=== PATIENT | female | born 1940 | race Caucasian/White ===

== ENCOUNTER 2019-06-15 09:31 | Observation (INO) | payer MEDICARE, OTHER, SELFPAY ==
[2019-06-15] VITALS (14 sets, daily range): BP systolic 146–199; BP diastolic 70–90; PULSE 61–79; RESP 12–18; TEMP 36.4–36.7; O2SAT 94–98; BMI 24.1; BMI 24.0
--- NOTE | 2019-06-15 09:44 | RAD_ITS ---
STUDY: X-RAY CHEST REASON FOR EXAM: Female, 79 years old. Hypertension. Stroke symptoms. TECHNIQUE: AP upright CXR COMPARISON: None. FINDINGS: No evidence of pneumonia, pulmonary edema, pneumothorax or pleural effusion. Cardiac silhouette, hilar and mediastinal contours with no acute findings. Atherosclerosis of the thoracic aorta. Degenerative osseous changes with no acute osseous abnormality. RAD/Chest 1 View IMPRESSION: No acute findings. Electronically Signed: Keith Barahona, at 10:40 EST Tel , Service support ,
--- NOTE | 2019-06-15 09:44 | EKG12_ITS ---
Test Reason : NEURO S
--- NOTE | 2019-06-15 09:44 | CT_ITS ---
STUDY: CT BRAIN WITHOUT CONTRAST REASON FOR EXAM: Female, 79 years old. Left arm pain and left facial droop. Hypertension and diabetes. TECHNIQUE: Transaxial CT imaging of the brain was performed without administration of intravenous contrast material. Individualized dose optimization techniques were used for this CT. COMPARISON: No relevant priors. FINDINGS: No evidence of intracranial hemorrhage, mass, acute infarct, or hydrocephalus. Chronic microangiopathic changes in the white matter. Atherosclerosis of the intracranial arteries. No acute osseous abnormality. Visualized paranasal sinuses and mastoid air cells patent. Visualized extracranial soft tissues unremarkable. ASPECTS 05/06 CT/Brain/Head without Contrast IMPRESSION: No acute intracranial findings. Electronically Signed: Keith Barahona, at 10:18 EST Tel , Service support ,
[2019-06-15 10:01] LABS: Bedside Glucose 153 mg/dL (70-110)
[2019-06-15 10:07] LABS: Absolute Lymphocyte Count 2.15 X10^3/uL (0.83-4.51); Basophil% 0.9 % (0-1); Eosinophil# 0.91 X10^3/uL; Eosinophils% 8.1 % (0-5); Hematocrit 44.1 % (37-47); Hemoglobin 14.5 g/dL (12.0-15.0); Lymphocyte # 2.15 X10^3/ul (4.0); Lymphocyte % 19.1 % (19-41); Mean Corp Hgb Conc 32.9 g/dL (32-36); Mean Corpuscular Hgb 29.9 pg (27.0-32.0); Mean Corpuscular Volume 90.9 fL (81-99); Monocyte% 8.9 % (0-10); NRBC Flagged by Analyzer 0 % (0-5); Neutrophil # 7.02 X10^3/uL (2.7-7.7); Neutrophil % 62.5 % (47-70); Platelet Count 248 K/mm3 (150-450); RBC Distribution Width CV 12.7 % (11.6-14.6); RBC Distribution Width SD 41.1 fl (35.1-43.9); Red Blood Count 4.85 M/mm3 (4.2-5.4); White Blood Count 11.2 K/mm3 (4.4-11.0)
[2019-06-15 10:12] LABS: Prothrombin Time (Protime)PT. 12.9 SECONDS (11.7-14.9)
[2019-06-15 10:13] LABS: Partial Thromboplast Time 28.5 Seconds (24.1-36.2)
[2019-06-15 10:27] LABS: Anion Gap 6 (5-15); BUN 28 mg/dL (7-18); BUN/Creat Ratio 19.7 RATIO (10-20); Calcium,Total 9.5 mg/dL (8.5-10.1); Chloride 102 mmol/L (98-107); Creatinine, Serum 1.42 mg/dL (0.55-1.02); EST Glomerular Filtration Rate 38 mL/min (>60); Est Glom Filt Rate - Afr Amer 46 mL/min (>60); Estimated Creatinine Clearance 28.43 ml/min; Glucose 141 mg/dL (74-106); Potassium 4.5 mmol/L (3.5-5.1); Sodium Level 139 mmol/L (136-145)
[2019-06-15] MEDS: 0.9% Normal Saline 1,000 ML 100 ML IV ×2 (10:31→13:29)
--- NOTE | 2019-06-15 10:37 | ED.RN ---
NIH DOCUMENTATION CANCELLED PER DR MAI SINCE PT HAS HAD NO S/S TODAY.
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
--- NOTE | 2019-06-15 10:58 | NURSING ---
PCU TIA KITTOE
--- NOTE | 2019-06-15 11:13 | ED.RN ---
PT HAS DECIDED NOT TO STAY
--- NOTE | 2019-06-15 11:49 | NURSING ---
PCU TIA KITTOE
--- NOTE | 2019-06-15 12:41 | CDU_ITS ---
Reason For Study: TIA Rt. Velocities/BP Lt. Velocities/BP Prox CCA 57.9/10.7 cm/sec. Prox CCA 73.9/10.7 cm/sec. Mid CCA 57.9/12.6 cm/sec. Mid CCA 54.1/10.7 cm/sec. Dist CCA 60.7/13.5 cm/sec. Dist CCA 58.8/12.6 cm/sec. Prox ICA 70.2/15.4 cm/sec. Prox ICA 68.4/17.9 cm/sec. Mid ICA 61.7/15.4 cm/sec. Mid ICA 58.6/16.8 cm/sec. Dist ICA 70.2/24.8 cm/sec. Dist ICA 64.0/16.8 cm/sec. Rt. ICA/CCA = 1.2. Lt. ICA/CCA = 1.3. Prox ECA 81.5/6.9 cm/sec. Prox ECA 90.4/5.8 cm/sec. Rt. Vert. 44.7/13.5 cm/sec. Lt. Vert. 37.7/11.3 cm/sec. Right Extracranial There is heterogeneous, irregular atherosclerotic plaque noted in the right common carotid artery. There is heterogeneous, irregular atherosclerotic plaque noted in the right internal carotid artery. There is heterogeneous, irregular atherosclerotic plaque noted in the right external carotid artery. Antegrade flow is noted in the right vertebral artery. Left Extracranial There is homogeneous, smooth atherosclerotic plaque noted in the left common carotid artery. There is heterogeneous, irregular atherosclerotic plaque noted in the left internal carotid artery. There is heterogeneous, irregular atherosclerotic plaque noted in the left external carotid artery. Antegrade flow is noted in the left vertebral artery. Procedure Carotid Duplex 31088. The exam was diagnostic. Exam performed portable in patient room. Interpretation Summary Irregular calcific plaque proximal right internal carotid and external carotid arteries <50% stenosis right internal carotid <50% stenosis right external carotid. Irregular calcific plaque proximal left internal carotid and external carotid arteries <50% stenosis left internal carotid <50% stenosis left external carotid Patent, antegrade, <50% stenosis bilateral vertebrals Ordering Physician: Chuck Martínez Performed By: Spike Jackson RVT
--- NOTE | 2019-06-15 12:41 | MRI_ITS ---
STUDY: MRI BRAIN WITHOUT CONTRAST REASON FOR EXAM: Female, 79 years old. TIA, left arm pain, facial paralysis and aphasia. TECHNIQUE: Standardized multiplanar fat and water weighted pulse sequences were obtained. COMPARISON: MRA brain and CT brain from today. MRI brain September 29, 2009. FINDINGS: There is moderate cerebral atrophy with widening of the extra-axial spaces and ventricular dilatation. There are multiple white matter hyperintensities, distributed throughout the deep white matter tracts of the cerebral hemispheres, consistent with moderate chronic white matter ischemic changes. There is no evidence for recent intracranial ischemia or other cause of cytotoxic edema on diffusion weighted imaging (DWI). Remote lacunar infarct left globus pallidus. Normal thalami. There is no extra-axial fluid accumulation. Normal flow voids within the major intracranial circulation suggesting patency by spin echo criteria. Normal sella turcica, pituitary gland, infundibular stalk, optic chiasm and hypothalamus. Normal tectal plate and pineal gland. Normal midbrain, michel and medulla. Normal cerebellum. Normal basal cisterns. Normal bilateral temporal bones. Normal bilateral internal auditory canals. No demonstrated orbital abnormality, within the constraints of a routine brain study. Normal visualized paranasal sinuses. Normal calvarium and skull base. Normal visualized soft tissue structures. Normal visualized upper cervical spine. MRI/Brain without Contrast IMPRESSION: Involutional changes of the brain, as described above. Electronically Signed: Ángel Ojeda MD at 20:35 EST , Service support ,
--- NOTE | 2019-06-15 12:41 | ECHOD_ITS ---
Reason For Study: TIA/CVA Procedure This was a 2D Doppler, Color Flow transthoracic echocardiogram. Exam performed portable in patient room. Left Ventricle Mild concentric left ventricular hypertrophy. The estimated ejection fraction is 65 %. Stage 2 diastolic dysfunction. No regional wall motion abnormalities noted. Right Ventricle Mildly dilated right ventricle. Normal systolic function. Atria The left atrium is severely enlarged. Normal right atrium. Normal atrial septum. Bubble contrast study negative for right to left interatrial shunt. Mitral Valve Mild diffuse mitral valve thickening. Moderate mitral annular calcification extending into the posterior leaflet. Trivial mitral valve insufficiency. Tricuspid Valve Normal tricuspid valve. Trivial tricuspid valve insufficiency. Right ventricular systolic pressure estimated to be 41 mmHg. Mild pulmonary hypertension. Aortic Valve Trisinus/trileaflet aortic valve. Moderate focal aortic valve thickening. Moderate focal aortic valve calcification. Moderate restriction of the aortic valve. Fused, immobile Left and rigtht coronary cusps. Mild to moderate aortic stenosis. Peak aortic valve gradient 33 mmHg. Mean aortic valve gradient 17 mmHg. Calculated aortic valve area (continuity equation) is 1.4 cm2. Pulmonic Valve Normal pulmonic valve. Great Vessels Normal aortic root. Moderate atherosclerosis of the aortic arch. Normal inferior vena cava. Inferior vena cava collapse with sniff. Pericardium/Pleural No pericardial effusion. Medication Performed a rapid injection of agitated mix of 9 cc saline and 1cc air to assess for atrial septal defect. MMode/2D Measurements & Calculations LVIDd: 3.7 cm IVSd: 1.4 cm LVOT diam: 2.1 cm LVIDs: 2.5 cm LVPWd: 1.4 cm RVDd: 3.7 cm FS: 34.5 % LVOT area: 3.5 cm2 Ao root diam: 3.6 cm LAV(MOD-bp): 74.3 ml LA A4 area: 26.0 cm2 LAV(MOD-bp) Indexed: 43.2 ml/m2 LAV(MOD-sp2): 60.6 ml LAV(MOD-sp4): 88.4 ml LA dimension(2D): 4.2 cm RA A4 area: 19.9 cm2 Doppler Measurements & Calculations MV E max hilario: 87.6 cm/sec Lat Peak E' Hilario: 6.9 cm/sec Med Peak E' Hilario: 5.2 cm/sec MV A max hilario: 56.3 cm/sec E/E' lat: 12.8 E/E' med: 16.9 MV E/A: 1.6 Ao V2 max: 279.4 cm/sec LV V1 max: 108.5 cm/sec SV(LVOT): 94.0 ml Ao max P.2 mmHg LV V1 max P.7 mmHg Ao V2 mean: 192.9 cm/sec LV V1 mean P.6 mmHg Ao mean P.7 mmHg LV V1 mean: 76.9 cm/sec Ao V2 VTI: 64.2 cm LV V1 VTI: 27.0 cm ANNA(I,D): 1.5 cm2 ANNA(V,D): 1.4 cm2 PA V2 max: 93.5 cm/sec TR max hilario: 291.9 cm/sec TR max P.2 mmHg Interpretation Summary Mild concentric left ventricular hypertrophy. The estimated ejection fraction is 65 %. Stage 2 diastolic dysfunction. Mildly dilated right ventricle. The left atrium is severely enlarged. Bubble contrast study negative for right to left interatrial shunt. Trivial mitral valve insufficiency. Trivial tricuspid valve insufficiency. Right ventricular systolic pressure estimated to be 41 mmHg. Mild pulmonary hypertension. Fused, immobile Left and rigtht coronary cusps. Mild to moderate aortic stenosis. Calculated aortic valve area (continuity equation) is 1.4 cm2. There is no comparison study available. Ordering Physician: Chuck Martínez Referring Physician: Chuck Martínez Performed By: Marychuy Heath RDCS
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
--- NOTE | 2019-06-15 14:23 | CON.PCM_ITS ---
Problem List (1) TIA (transient ischemic attack) Status: Acute Reason for Consult Date of Consultation: 06/15/19 Reason for Consultation: Speech disturbances, left arm weakness History of Present Illness: The patient is a 79 year old F with PMH HTN, HLD, DM, gout admitted with strokelike symptoms. Per patient she had acute onset of left arm pain, facial weakness, speech disturbances yesterday 06/15/2019. Per patient she was at [facility] and initially had acute onset left arm pain, followed by facial weakness, per he noticed a facial droop, initially patient could not speak and per her speech was slurred and garbled and he could not understand what she was trying to say, later they went home and at that time she had difficulty holding objects due to weakness in the left hand, per patient the whole incident lasted for about 15 to 20 minutes before her symptoms resolved. Per ED documentation NIHSS on admission was 0. Denies any neck pain, low back pain or radicular symptoms. Per patient she lives with her , denies any frequent falls, does not use cane or walker to ambulate, does drive and does not need any assistance for ADLs. Per patient she is on aspirin at baseline. CT head done on admission reported unremarkable. [] Past Medical History Past Medical History (Chronic Problems): Chronic Problems Essential (primary) hypertension (Chronic) DM2 (diabetes mellitus, type 2) (Chronic) Allergies No Known Allergies Allergy (Verified 06/15/19 09:33) Home Medications: Ambulatory Orders Medication Instructions Recorded Allopurinol [Zyloprim] 300 mg PO DAILY 06/15/19 Aspirin [Adult Low Dose Aspirin EC] 81 mg PO DAILY 06/15/19 Atenolol [Tenormin (Beta Kvng)] 100 mg PO DAILY 06/15/19 Dulaglutide [Trulicity] 1.5 mg SQ [place] 06/15/19 Enalapril Maleate 20 mg PO DAILY 06/15/19 Hydrochlorothiazide [Hctz] 25 mg PO DAILY 06/15/19 Insulin Glargine,Hum.rec.anlog 50 unit SQ BID 06/15/19 [Lantus] Pravastatin [Pravachol] 20 mg PO QHS 06/15/19 Lives: Spouse/ Significant Other Smoking Status: Never smoker Tobacco Use: Non-smoker Alcohol: None Drugs: None - *Family History Maternal History Items: Heart Disease Review of Systems Constitutional: Reports: - - Complete ROS negative except as documented in HPI Patient Problems: Active and Suspected Problems Facial paresthesia (Acute) TIA (transient ischemic attack) (Acute) - Physical Exam Vitals/I&O's: Vital Signs Temp Pulse Resp BP Pulse Ox 98.1 F 79 16 171/80 H 95 06/15/19 09:33 06/15/19 11:46 06/15/19 11:46 06/15/19 11:46 06/15/19 11:46 Oxygen Delivery Method Room Air Weight: 65.4 kg Body Mass Index (BMI) 24.0 Finger Stick Blood Glucose 153 General: Alert HEENT: Normocephalic Neck: Supple Lungs: Normal air movement Cardiovascular: Normal S1, Normal S2 Abdomen: Bowel Sounds Present Extremities: No cyanosis Neurological: - - Conscious, alert, AOA x3, CN II to XII grossly intact, power 5/5 both upper and lower extremities, plantars B/L flexor, no pronator drift, no sensory loss, no cerebellar signs, gait deferred, reflexes + B/L B/S/T/K/A, No NR, fundus not visualized, NIHSS 0 at present, mRS 0 at baseline Psych/Mental Status: Normal Affect Laboratory Results 06/15/19 09:49: POC Glucose 153 H 06/15/19 09:54: WBC 11.2 H, RBC 4.85, Hgb 14.5, Hct 44.1, MCV 90.9, MCH 29.9, MCHC 32.9, RDW Std Deviation 41.1, RDW Coeff of Meagan 12.7, Plt Count 248, MPV 10.0, Immature Gran % (Auto) 0.500, Neut % (Auto) 62.5, Lymph % (Auto) 19.1, [place] % (Auto) 8.9, Eos % (Auto) 8.1 H, Baso % (Auto) 0.9, Absolute Neuts (auto) 7.0, Absolute Lymphs (auto) 2.15, Nucleated RBC % 0 06/15/19 09:54: PT 12.9, INR 1.0, APTT 28.5 06/15/19 09:54: Sodium 139, Potassium 4.5, Chloride 102, Carbon Dioxide 31.0, Anion Gap 6, BUN 28 H, Creatinine 1.42 H, Estim Creat Clear Calc 28.43, Est GFR (MDRD) Af Amer 46 L, Est GFR (MDRD) Non-Af 38 L, BUN/Creatinine Ratio 19.7, Glucose 141 H, Calcium 9.5, Troponin I < 0.015 06/15/19 12:50: Troponin I < 0.015 Current Medications Acetaminophen (Tylenol) 650 mg PO Q6H PRN PRN PRN Reason: Pain Score 1-3/Temp > 100.7 F Albuterol Sulfate (Ventolin Aerosols) 2.5 mg INHALATION Q2H PRN PRN PRN Reason: SOB/Wheezing Allopurinol (Zyloprim) 300 mg PO DAILY@0800 [facility] Aspirin (Aspirin, Baby) 81 mg PO DAILY@0800 [facility] Atenolol (Tenormin (Beta Kvng)) 100 mg PO DAILY [facility] Dextrose (D50w Syringe) 0 gm IV X1 PRN; Protocol PRN Reason: Hypoglycemia Enoxaparin Sodium (Lovenox) 30 mg SC DAILY@1000 [facility] Glucagon () 1 mg IM .X1 PRN PRN Reason: Hypoglycemia Guaifenesin (Robitussin) 20 ml PO Q4H PRN PRN PRN Reason: COUGH Hydrochlorothiazide (Hctz) 25 mg PO DAILY [facility] Sodium Chloride () 1,000 mls @ 100 mls/hr IV .Q10H ONE Stop: 06/15/19 19:43 Last Admin: 06/15/19 10:31 Dose: 100 mls/hr Documented by: Sodium Chloride () 1,000 mls @ 100 mls/hr IV .Q10H JAVAD Stop: 06/17/19 04:40 Last Admin: 06/15/19 13:29 Dose: 100 mls/hr Documented by: Sodium Chloride () 250 mls @ 15 mls/hr IV .[id number] PRN PRN Reason: Saline Flush Insulin Glargine (Lantus (Bkc)) 50 units SC BID [facility] Insulin Human Lispro (Humalog Kwikpen (Bkc)) 0 unit SC ACHS [facility]; Protocol Lisinopril (Zestril) 20 mg PO DAILY [facility] Melatonin (Melatonin) 3 mg PO QHS PRN PRN PRN Reason: INSOMNIA Nitroglycerin (Nitrostat) 0.4 mg SUBLINGUAL Q5M PRN PRN Reason: CARDIAC/CHEST PAIN Non-Formulary Medication (Dulaglutide) 1.5 mg SQ [place] JAVAD Ondansetron HCl (Zofran) 4 mg IV Q8H PRN PRN PRN Reason: NAUSEA/VOMITING Oxycodone HCl (Oxyir) 5 mg PO Q4H PRN PRN PRN Reason: Pain Score 4-5/10 Oxycodone HCl (Oxyir) 10 mg PO Q4H PRN PRN PRN Reason: Pain Score 6-10/10 Pravastatin Sodium (Pravachol) 20 mg PO QHS [facility]AV[facility] Senna/Docusate Sodium (Senokot-S, Rosaura-Colace) 2 tablet PO BID PRN PRN PRN Reason: Constipation Sodium Chloride () 10 - 40 ml IV UD PRN PRN Reason: SALINE FLUSH Assessment/Plan All Active Problems Facial paresthesia (Acute) TIA (transient ischemic attack) (Acute) The patient is a 79 year old F with PMH HTN, HLD, DM, gout admitted with strokelike symptoms. Per patient she had acute onset of left arm pain, facial weakness, speech disturbances yesterday 06/15/2019. Per patient she was at [facility] and initially had acute onset left arm pain, followed by facial weakness, per he noticed a facial droop, initially patient could not speak and per her speech was slurred and garbled and he could not understand what she was trying to say, later they went home and at that time she had difficulty holding objects due to weakness in the left hand, per patient the whole incident lasted for about 15 to 20 minutes before her symptoms resolved. Per ED documentation NIHSS on admission was 0. Denies any neck pain, low back pain or radicular symptoms. Per patient she lives with her , denies any frequent falls, does not use cane or walker to ambulate, does drive and does not need any assistance for ADLs. Per patient she is on aspirin at baseline. CT head done on admission reported unremarkable. Impression Probable TIA Plan -Aspirin 81 mg p.o. once daily and Plavix 75 mg p.o. once daily. Dual antiplatelet for 3weeks then switch to single antiplatelet with aspirin. Bleeding risk discussed in detail with the patient. ABCD2 score atleast 5 -On Pravachol -MRI brain, MRA head/neck -HbA1c pending, LDL pending -TTE-pending -30-day event recorder on discharge -Stroke risk factors discussed and stroke education provided -Permissive HTN for 24 hrs -snf goal BP < 130/80 mmHg, goal LDL < 70 and goal Hba1c < 7% -PT/OT/ST -GI/DVT prophylaxis -Fall precautions -Further medical management per hospitalist team -Please call with questions if any -Follow-up with neurology in 4 weeks -Thank you for allowing us to participate in patient's care and management This note has been generated using [employer] dictation software. It may contain incorrect words, spellings and punctuation that were not noted in the review of the note prior to signing Code Visit Inpatient E&M: 18176 Init Hosp L3
--- NOTE | 2019-06-15 14:28 | MRI_ITS ---
STUDY: MRA OF THE HEAD WITHOUT CONTRAST REASON FOR EXAM: Female, 79 years old. TIA with left arm pain and facial paralysis. Aphasia. TECHNIQUE: 3-D [id number] (TOF) imaging was performed with MIPs. The study was performed unenhanced. COMPARISON: CT brain June 15, 2019 and MRI brain September 29, 2009 FINDINGS: Normal bilateral petrous carotid arteries. Normal right cavernous carotid artery with a normal supraclinoid bifurcation. Normal left cavernous carotid artery with a normal supraclinoid bifurcation. Normal right A1 segments of the anterior cerebral artery. Normal left A1 segments of the anterior cerebral artery. Normal intact anterior communicating artery (ACOM). Normal bilateral A2 segments of the anterior cerebral arteries. Normal right M1 and M2 segments of the middle cerebral arteries, with a normal M1 bifurcation. Normal left M1 and M2 segments of the middle cerebral arteries, with a normal M1 bifurcation. There is non-visualization of the right posterior communicating artery (PCOM). There is non-visualization of the left posterior communicating artery (PCOM). Moderate narrowing distal left vertebral artery near the bifurcation. Oormal basilar artery with a normal basilar bifurcation. The visualized bilateral superior cerebellar (SCA) arteries are normal. Normal bilateral P1, P2 and visualized P3 segments of the posterior cerebral arteries. Moderate stenosis p2-3 junction on the left. There is no demonstrated aneurysm of the [place]. There is no demonstrated abnormality of the visualized brain. MRI/MRA Head ONLY without Contrast IMPRESSION: Moderate stenosis distal left vertebral artery and left posterior cerebral artery as above. Electronically Signed: Ángel Ojeda MD at 16:32 EST , Service support ,
--- NOTE | 2019-06-15 14:28 | MRI_ITS ---
STUDY: MRA NECK WITHOUT CONTRAST REASON FOR EXAM: Female, 79 years old. TIA, left arm pain, facial paralysis and aphasia TECHNIQUE: Source images were obtained, MIPs were performed. The study was performed unenhanced. Proximal and distal field of view/vessels not well visualized technically. COMPARISON: None. FINDINGS: RIGHT CAROTID ARTERIES: Normal right common carotid artery (CCA). Normal right common carotid bulb. Normal origin of the right internal carotid (ICA) artery without a hemodynamically significant stenosis. Normal visualized cervical portion of the right internal carotid artery. Normal origin of the right external carotid artery (ECA). LEFT CAROTID ARTERIES: Normal left common carotid artery (CCA). Normal left common carotid bulb. Normal origin of the left internal carotid (ICA) artery without a hemodynamically significant stenosis. Normal visualized cervical portion of the left internal carotid artery. Normal origin of the left external carotid artery (ECA). VERTEBRAL ARTERIES: Normal antegrade flow within the bilateral vertebral artery without a hemodynamically significant stenosis. MRI/MRA Neck without Contrast IMPRESSION: Normal bilateral cervical carotid and vertebral arteries. Electronically Signed: Ángel Ojeda MD at 20:51 EST , Service support ,
[2019-06-15 15:06] LABS: Cholesterol 159 mg/dL (200); High Density Lipoprotein 46 mg/dL; Triglycerides 62 mg/dL; Very Low Density Lipoprotein 12 mg/dL (5-40)
[2019-06-15 15:11] LABS: Hemoglobin A1c 8.6 % (4.2-6.3)
[2019-06-15] MEDS: Clopidogrel Bisulfate 75 MG Tablet PO (16:25)
[2019-06-15 16:36] LABS: Bedside Glucose 109 mg/dL (70-110)
[2019-06-15 23:11] LABS: Bedside Glucose 193 mg/dL (70-110)
[2019-06-16] VITALS (7 sets, daily range): BP systolic 149–173; BP diastolic 84–95; PULSE 57–79; RESP 18; TEMP 36.4–36.7; O2SAT 94–96; BMI 24.0
[2019-06-16] MEDS: 0.9% Normal Saline 1,000 ML 100 ML IV (00:33)
[2019-06-16 06:09] LABS: Absolute Lymphocyte Count 2.07 X10^3/uL (0.83-4.51); Absolute Neutrophil Count 5.1 X10^3/uL (2.0-7.7); Basophil# 0.05 X10^3/uL; Basophil% 0.6 % (0-1); Eosinophil# 0.63 X10^3/uL; Eosinophils% 7.3 % (0-5); Hematocrit 37.7 % (37-47); Hemoglobin 12.5 g/dL (12.0-15.0); Lymphocyte # 2.07 X10^3/ul (4.0); Lymphocyte % 23.9 % (19-41); Mean Corp Hgb Conc 33.2 g/dL (32-36); Mean Corpuscular Volume 90.6 fL (81-99); Mean Platelet Vol. 10.1 fl (6.2-12.0); Monocyte# 0.75 X10^3/uL; Monocyte% 8.7 % (0-10); NRBC Flagged by Analyzer 0 % (0-5); Neutrophil # 5.14 X10^3/uL (2.7-7.7); Neutrophil % 59.2 % (47-70); Platelet Count 194 K/mm3 (150-450); RBC Distribution Width CV 12.4 % (11.6-14.6); RBC Distribution Width SD 40.5 fl (35.1-43.9); Red Blood Count 4.16 M/mm3 (4.2-5.4); White Blood Count 8.7 K/mm3 (4.4-11.0)
[2019-06-16 06:24] LABS: Anion Gap 6 (5-15); BUN 28 mg/dL (7-18); BUN/Creat Ratio 20.1 RATIO (10-20); Calcium,Total 8.7 mg/dL (8.5-10.1); Chloride 107 mmol/L (98-107); Cholesterol 137 mg/dL (200); Creatinine, Serum 1.39 mg/dL (0.55-1.02); EST Glomerular Filtration Rate 39 mL/min (>60); Est Glom Filt Rate - Afr Amer 47 mL/min (>60); Estimated Creatinine Clearance 29.05 ml/min; Glucose 196 mg/dL (74-106); High Density Lipoprotein 36 mg/dL; Potassium 4.4 mmol/L (3.5-5.1); Sodium Level 142 mmol/L (136-145); Triglycerides 73 mg/dL; Very Low Density Lipoprotein 15 mg/dL (5-40)
[2019-06-16 06:55] LABS: Bedside Glucose 198 mg/dL (70-110)
[2019-06-16] MEDS: Aspirin 81 MG TAB.CHEW PO (08:30)
[2019-06-16] MEDS: Allopurinol 300 MG Tablet PO (08:30)
[2019-06-16] MEDS: Clopidogrel Bisulfate 75 MG Tablet PO (09:02)
[2019-06-16] MEDS: hydroCHLOROthiazide 25 MG Tablet PO (09:03)
[2019-06-16] MEDS: Atenolol 100 MG Tablet PO (09:03)
[2019-06-16] MEDS: Lisinopril 20 MG Tablet PO (09:03)
--- NOTE | 2019-06-16 09:40 | DCINST_ITS ---
- Discharge Diagnoses Current Active Problems: Current Active and Chronic Problems Facial paresthesia (Acute) Essential (primary) hypertension (Chronic) DM2 (diabetes mellitus, type 2) (Chronic) TIA (transient ischemic attack) (Acute) You will use the following diet at home:: Calorie/Carbohydrate Controlled (specify 1200, 1400, etc) - 1800 Your food should be the consistency of: Regular Discharge Activity: May Not Drive Allergies/Adverse Reactions: Allergies No Known Allergies Allergy (Verified 06/15/19 09:33) Medications to take at Discharge Allopurinol [Zyloprim] 300 mg PO DAILY 06/15/19 Aspirin [Adult Low Dose Aspirin EC] 81 mg PO DAILY 06/15/19 Atenolol [Tenormin (beta nba)] 100 mg PO DAILY 06/15/19 Dulaglutide [Trulicity] 1.5 mg SQ [place] 06/15/19 Enalapril Maleate 20 mg PO DAILY 06/15/19 Hydrochlorothiazide [Hctz] 25 mg PO DAILY 06/15/19 Insulin Glargine,Hum.rec.anlog [Lantus] 50 unit SQ BID 06/15/19 Pravastatin [Pravachol] 20 mg PO DAILY 06/15/19 Clopidogrel Bisulfate [Plavix] 75 mg PO DAILY #20 tab 06/16/19 The following prescriptions were given: Clopidogrel Bisulfate [Plavix] 75 mg PO DAILY #20 tab Transmission Status: Received by [facility] Primary Care Physician: Ervin Beck DO [Primary Care Provider] - Please follow up with your Primary Care Physician in: in 5-7 days for 1 30 day event recorder as recommended by neurology Test Results: Test results from this visit will be discussed in further detail at your follow- up appointment, if applicable. Proposed Discharge Date: 06/16/19
--- NOTE | 2019-06-16 09:41 | DS.PCM_ITS ---
Discharge Date and Diagnosis - Problem List Patient Problems: Active and Suspected Problems Facial paresthesia (Acute) TIA (transient ischemic attack) (Acute) Date of Admission: 06/15/19 Date of Discharge: 06/16/19 - Primary Discharge Diagnosis Active and Suspected Problems Facial paresthesia (Acute) TIA (transient ischemic attack) (Acute) - Secondary Discharge Diagnosis Chronic Problems Essential (primary) hypertension (Chronic) DM2 (diabetes mellitus, type 2) (Chronic) Hospital Course and Treatment Imaging Results: Clinical Impression(s) from Imaging Studies Brain CT 06/15/19 09:44 IMPRESSION: No acute intracranial findings. Electronically Signed: Keith Barahona, at 10:18 EST Tel , Service support , Chest X-Ray 06/15/19 09:44 IMPRESSION: No acute findings. Electronically Signed: Keith Barahona, at 10:40 EST Tel , Service support , Brain MRI 06/15/19 12:41 IMPRESSION: Involutional changes of the brain, as described above. Electronically Signed: Ángel Ojeda MD at 20:35 EST , Service support , Head MRA 06/15/19 14:28 IMPRESSION: Moderate stenosis distal left vertebral artery and left posterior cerebral artery as above. Electronically Signed: Ángel Ojeda MD at 16:32 EST , Service support , Neck MRA 06/15/19 14:28 IMPRESSION: Normal bilateral cervical carotid and vertebral arteries. Electronically Signed: Ángel Ojeda MD at 20:51 EST , Service support , Summary of Care Provided: Patient is an 79-year-old lady who presented with facial numbness as well as upper extremity weakness 1. Suspected TIA ~admitted to monitored bed. Placed on every 4 neurochecks. As part of her evaluation ordered bilateral carotid duplex, MRI of the head, 2D echo. Patient was started on aspirin. Already on statin therapy did continue. Consult was also placed to neurology. Patient was seen in consultation by Dr. Aranda his note and recommendations reviewed. MRI failed to demonstrate acute CVA patient was however discharged home on dual antiplatelet therapy with aspirin and Plavix for 3 weeks then continue with aspirin only. Dr. Aranda also recommended for patient to undergo a 30-day event monitor patient instructed to follow-up with PCP to have this set up. 2. Diabetes mellitus type II ~Controlled patient's oral hypoglycemics held. Placed on long acting insulin, Accu-Cheks a.c. and at bedtime and covered with sliding scale insulin 3. Hypertension ~ blood pressure controlled, home medications continued with dose adjustment as needed 4. Dyslipidemia ~patient is on statin therapy, continued at home dose 5. Gout Symptoms controlled on allopurinol 6. Acute renal insufficiency Baseline creatinine unknown patient is currently being rehydrated with subsequent monitoring of electrolyte 7. DVT prophylaxis ~ on enoxaparin Patient Problems: Active and Suspected Problems Facial paresthesia (Acute) TIA (transient ischemic attack) (Acute) Objective: GENERAL: cooperative HEENT: Atraumatic; EYES; Anicteric, Normal Conjunctiva NECK; supple, normal thyroid, RESPIRATORY: Diminished to auscultation CARDIOVASCULAR: Regular S1 S2, GI: soft, normoactive bowel sounds, : No Renal angle tenderness; SKIN: No Rash PSYCH; Flat affect - Physical Exam Vitals/I&O's: Vital Signs Temp Pulse Resp BP Pulse Ox 98.0 F 71 18 173/95 H 94 06/16/19 09:00 06/16/19 09:00 06/16/19 09:00 06/16/19 09:00 06/16/19 09:00 Oxygen Delivery Method Room Air Weight: 65.4 kg Body Mass Index (BMI) 24.0 Finger Stick Blood Glucose 153 Intake and Output for Last 24 Hours 06/14/19 06/15/19 06/16/19 23:59 23:59 23:59 Intake Total 1891.67 / 1891.67 1333.33 / 1333.33 Balance 1891.67 / 1891.67 1333.33 / 1333.33 Laboratory Results 06/15/19 09:49: POC Glucose 153 H 06/15/19 09:54: WBC 11.2 H, RBC 4.85, Hgb 14.5, Hct 44.1, MCV 90.9, MCH 29.9, MCHC 32.9, RDW Std Deviation 41.1, RDW Coeff of Meagan 12.7, Plt Count 248, MPV 10.0, Immature Gran % (Auto) 0.500, Neut % (Auto) 62.5, Lymph % (Auto) 19.1, [place] % (Auto) 8.9, Eos % (Auto) 8.1 H, Baso % (Auto) 0.9, Absolute Neuts (auto) 7.0, Absolute Lymphs (auto) 2.15, Nucleated RBC % 0 06/15/19 09:54: PT 12.9, INR 1.0, APTT 28.5 06/15/19 09:54: Sodium 139, Potassium 4.5, Chloride 102, Carbon Dioxide 31.0, Anion Gap 6, BUN 28 H, Creatinine 1.42 H, Estim Creat Clear Calc 28.43, Est GFR (MDRD) Af Amer 46 L, Est GFR (MDRD) Non-Af 38 L, BUN/Creatinine Ratio 19.7, Glucose 141 H, Calcium 9.5, Troponin I < 0.015 06/15/19 09:54: Hemoglobin A1c 8.6 H 06/15/19 12:50: Troponin I < 0.015 06/15/19 12:50: Triglycerides 62, Cholesterol 159, LDL Cholesterol 101, VLDL Cholesterol 12, HDL Cholesterol 46 06/15/19 16:24: POC Glucose 109 06/15/19 21:06: POC Glucose 193 H 06/16/19 05:35: WBC 8.7, RBC 4.16 L, Hgb 12.5, Hct 37.7, MCV 90.6, MCH 30.0, MCHC 33.2, RDW Std Deviation 40.5, RDW Coeff of [place] 12.4, Plt Count 194, MPV 10.1, Immature Gran % (Auto) 0.300, Neut % (Auto) 59.2, Lymph % (Auto) 23.9, [place] % (Auto) 8.7, Eos % (Auto) 7.3 H, Baso % (Auto) 0.6, Absolute Neuts (auto) 5.1, Absolute Lymphs (auto) 2.07, Nucleated RBC % 0 06/16/19 05:35: Sodium 142, Potassium 4.4, Chloride 107, Carbon Dioxide 29.0, Anion Gap 6, BUN 28 H, Creatinine 1.39 H, Estim Creat Clear Calc 29.05, Est GFR (MDRD) Af Amer 47 L, Est GFR (MDRD) Non-Af 39 L, BUN/Creatinine Ratio 20.1 H, Glucose 196 H, Calcium 8.7, Triglycerides 73, Cholesterol 137, LDL Cholesterol 86, VLDL Cholesterol 15, HDL Cholesterol 36 L 06/16/19 06:51: POC Glucose 198 H Current Medications Acetaminophen (Tylenol) 650 mg PO Q6H PRN PRN PRN Reason: Pain Score 1-3/Temp > 100.7 F Albuterol Sulfate (Ventolin Aerosols) 2.5 mg INHALATION Q2H PRN PRN PRN Reason: SOB/Wheezing Allopurinol (Zyloprim) 300 mg PO DAILY@0800 [facility] Last Admin: 06/16/19 08:30 Dose: 300 mg Documented by: Aspirin (Aspirin, Baby) 81 mg PO DAILY@0800 [facility] Last Admin: 06/16/19 08:30 Dose: 81 mg Documented by: Atenolol (Tenormin (Beta Kvng)) 100 mg PO DAILY [facility] Last Admin: 06/16/19 09:03 Dose: 100 mg Documented by: Clopidogrel Bisulfate (Plavix) 75 mg PO DAILY [facility] Stop: 07/06/19 10:00 Last Admin: 06/16/19 09:02 Dose: 75 mg Documented by: Dextrose (D50w Syringe) 0 gm IV X1 PRN; Protocol PRN Reason: Hypoglycemia Enoxaparin Sodium (Lovenox) 30 mg SC DAILY@1000 [facility] Last Admin: 06/16/19 09:03 Dose: Not Given Documented by: Glucagon () 1 mg IM .X1 PRN PRN Reason: Hypoglycemia Guaifenesin (Robitussin) 20 ml PO Q4H PRN PRN PRN Reason: COUGH Hydrochlorothiazide (Hctz) 25 mg PO DAILY [facility] Last Admin: 06/16/19 09:03 Dose: 25 mg Documented by: Sodium Chloride () 250 mls @ 15 mls/hr IV .[id number] PRN PRN Reason: Saline Flush Insulin Glargine (Lantus (Bkc)) 50 units SC BID [facility] Last Admin: 06/16/19 09:03 Dose: 50 units Documented by: Insulin Human Lispro (Humalog Kwikpen (Bkc)) 0 unit SC ACHS [facility]; Protocol Last Admin: 06/16/19 06:54 Dose: Not Given Documented by: Lisinopril (Zestril) 20 mg PO DAILY [facility] Last Admin: 06/16/19 09:03 Dose: 20 mg Documented by: Melatonin (Melatonin) 3 mg PO QHS PRN PRN PRN Reason: INSOMNIA Nitroglycerin (Nitrostat) 0.4 mg SUBLINGUAL Q5M PRN PRN Reason: CARDIAC/CHEST PAIN Ondansetron HCl (Zofran) 4 mg IV Q8H PRN PRN PRN Reason: NAUSEA/VOMITING Oxycodone HCl (Oxyir) 5 mg PO Q4H PRN PRN PRN Reason: Pain Score 4-5/10 Oxycodone HCl (Oxyir) 10 mg PO Q4H PRN PRN PRN Reason: Pain Score 6-10/10 Pravastatin Sodium (Pravachol) 20 mg PO QHS [facility] Last Admin: 06/15/19 21:10 Dose: Not Given Documented by: Senna/Docusate Sodium (Senokot-S, Rosaura-Colace) 2 tablet PO BID PRN PRN PRN Reason: Constipation Sodium Chloride () 10 - 40 ml IV UD PRN PRN Reason: SALINE FLUSH Discharge Diet: Low fat/ Low Cholesterol Discharge Activity: May Not Drive Home Medications: Medications to take at Discharge Allopurinol [Zyloprim] 300 mg PO DAILY 06/15/19 Aspirin [Adult Low Dose Aspirin EC] 81 mg PO DAILY 06/15/19 Atenolol [Tenormin (beta kvng)] 100 mg PO DAILY 06/15/19 Dulaglutide [Trulicity] 1.5 mg SQ [place] 06/15/19 Enalapril Maleate 20 mg PO DAILY 06/15/19 Hydrochlorothiazide [Hctz] 25 mg PO DAILY 06/15/19 Insulin Glargine,Hum.rec.anlog [Lantus] 50 unit SQ BID 06/15/19 Pravastatin [Pravachol] 20 mg PO DAILY 06/15/19 Clopidogrel Bisulfate [Plavix] 75 mg PO DAILY #20 tab 06/16/19 Following Prescrptions Were Given to Patient: Clopidogrel Bisulfate [Plavix] 75 mg PO DAILY #20 tab Transmission Status: Received by [facility] Primary Care Physician: Ervin Beck DO [Primary Care Provider] - Please follow up with your Primary Care Physician in: in 5-7 days for 1 30 day event recorder as recommended by neurology Disposition: Home Minutes spent on discharge:: 35 Patient Condition:: Stable Medical Necessity - Tobacco Use Smoking Status: Never smoker Tobacco Use: Non-smoker Meaningful Use Info Meaningful Use Diagnoses (Choose all that apply): None applicable Code Visit OBSV E&M: 65703 Observation care discharge
--- NOTE | 2019-06-16 10:43 | CASEMGMT ---
This RN CM to room with REYES form at this time, explanation done-pt voices understanding, and pt signed REYES form at this time. Original to chart and copy to pt at this time. Pt voices no further questions/concern/needs at this time. Pt awaiting ECHO results prior to discharge. [place] CL[facility] MAR[facility]
[2019-06-16 11:06] LABS: Bedside Glucose 282 mg/dL (70-110)
--- NOTE | 2019-06-16 11:57 | PN.NEURO_ITS ---
Patient Problems: Active and Suspected Problems Facial paresthesia (Acute) TIA (transient ischemic attack) (Acute) Subjective: No issues overnight. Care discussed with the nursing staff. 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 Patient denies any further strokelike symptoms. - Physical Exam Vitals/I&O's: Vital Signs Temp Pulse Resp BP Pulse Ox 98.0 F 71 18 173/95 H 94 06/16/19 09:00 06/16/19 09:00 06/16/19 09:00 06/16/19 09:00 06/16/19 09:00 Oxygen Delivery Method Room Air Weight: 65.4 kg Body Mass Index (BMI) 24.0 Finger Stick Blood Glucose 153 Intake and Output for Last 24 Hours 06/14/19 06/15/19 06/16/19 23:59 23:59 23:59 Intake Total 1891.67 / 1891.67 1333.33 / 1333.33 Balance 1891.67 / 1891.67 1333.33 / 1333.33 General: Alert HEENT: Normocephalic Neck: Supple Lungs: Normal air movement Cardiovascular: Normal S1, Normal S2 Abdomen: Bowel Sounds Present Extremities: No cyanosis Neurological: - - Conscious, alert, AOA x3, CN II to XII grossly intact, power 5/5 both upper and lower extremities, plantars B/L flexor, no pronator drift, no sensory loss, no cerebellar signs, gait deferred, reflexes + B/L B/S/T/K/A, No NR, fundus not visualized, NIHSS 0 at present, mRS 0 at baseline Psych/Mental Status: Normal Affect Laboratory Results 06/15/19 09:54: Hemoglobin A1c 8.6 H 06/15/19 12:50: Troponin I < 0.015 06/15/19 12:50: Triglycerides 62, Cholesterol 159, LDL Cholesterol 101, VLDL Cholesterol 12, HDL Cholesterol 46 06/15/19 16:24: POC Glucose 109 06/15/19 21:06: POC Glucose 193 H 06/16/19 05:35: WBC 8.7, RBC 4.16 L, Hgb 12.5, Hct 37.7, MCV 90.6, MCH 30.0, MCHC 33.2, RDW Std Deviation 40.5, RDW Coeff of Meagan 12.4, Plt Count 194, MPV 10.1, Immature Gran % (Auto) 0.300, Neut % (Auto) 59.2, Lymph % (Auto) 23.9, Huron % (Auto) 8.7, Eos % (Auto) 7.3 H, Baso % (Auto) 0.6, Absolute Neuts (auto) 5.1, Absolute Lymphs (auto) 2.07, Nucleated RBC % 0 06/16/19 05:35: Sodium 142, Potassium 4.4, Chloride 107, Carbon Dioxide 29.0, Anion Gap 6, BUN 28 H, Creatinine 1.39 H, Estim Creat Clear Calc 29.05, Est GFR (MDRD) Af Amer 47 L, Est GFR (MDRD) Non-Af 39 L, BUN/Creatinine Ratio 20.1 H, Glucose 196 H, Calcium 8.7, Triglycerides 73, Cholesterol 137, LDL Cholesterol 86, VLDL Cholesterol 15, HDL Cholesterol 36 L 06/16/19 06:51: POC Glucose 198 H 06/16/19 11:02: POC Glucose 282 H Current Medications Acetaminophen (Tylenol) 650 mg PO Q6H PRN PRN PRN Reason: Pain Score 1-3/Temp > 100.7 F Albuterol Sulfate (Ventolin Aerosols) 2.5 mg INHALATION Q2H PRN PRN PRN Reason: SOB/Wheezing Allopurinol (Zyloprim) 300 mg PO DAILY@0800 [facility] Last Admin: 06/16/19 08:30 Dose: 300 mg Documented by: Aspirin (Aspirin, Baby) 81 mg PO DAILY@0800 [facility] Last Admin: 06/16/19 08:30 Dose: 81 mg Documented by: Atenolol (Tenormin (Beta Kvng)) 100 mg PO DAILY [facility] Last Admin: 06/16/19 09:03 Dose: 100 mg Documented by: Clopidogrel Bisulfate (Plavix) 75 mg PO DAILY [facility] Stop: 07/06/19 10:00 Last Admin: 06/16/19 09:02 Dose: 75 mg Documented by: Dextrose (D50w Syringe) 0 gm IV X1 PRN; Protocol PRN Reason: Hypoglycemia Enoxaparin Sodium (Lovenox) 30 mg SC DAILY@1000 [facility] Last Admin: 06/16/19 09:03 Dose: Not Given Documented by: Glucagon () 1 mg IM .X1 PRN PRN Reason: Hypoglycemia Guaifenesin (Robitussin) 20 ml PO Q4H PRN PRN PRN Reason: COUGH Hydrochlorothiazide (Hctz) 25 mg PO DAILY [facility] Last Admin: 06/16/19 09:03 Dose: 25 mg Documented by: Sodium Chloride () 250 mls @ 15 mls/hr IV .[id number] PRN PRN Reason: Saline Flush Insulin Glargine (Lantus (Bkc)) 50 units SC BID [facility] Last Admin: 06/16/19 09:03 Dose: 50 units Documented by: Insulin Human Lispro (Humalog Kwikpen (Bk)) 0 unit SC [facility]; Protocol Last Admin: 06/16/19 06:54 Dose: Not Given Documented by: Lisinopril (Zestril) 20 mg PO DAILY [facility] Last Admin: 06/16/19 09:03 Dose: 20 mg Documented by: Melatonin (Melatonin) 3 mg PO QHS PRN PRN PRN Reason: INSOMNIA Nitroglycerin (Nitrostat) 0.4 mg SUBLINGUAL Q5M PRN PRN Reason: CARDIAC/CHEST PAIN Ondansetron HCl (Zofran) 4 mg IV Q8H PRN PRN PRN Reason: NAUSEA/VOMITING Oxycodone HCl (Oxyir) 5 mg PO Q4H PRN PRN PRN Reason: Pain Score 4-5/10 Oxycodone HCl (Oxyir) 10 mg PO Q4H PRN PRN PRN Reason: Pain Score 6-10/10 Pravastatin Sodium (Pravachol) 20 mg PO QHS [facility] Last Admin: 06/15/19 21:10 Dose: Not Given Documented by: Senna/Docusate Sodium (Senokot-S, Rosaura-Colace) 2 tablet PO BID PRN PRN PRN Reason: Constipation Sodium Chloride () 10 - 40 ml IV UD PRN PRN Reason: SALINE FLUSH STROKE Vital Signs/Narrative: Vital Signs Temp Pulse Resp BP Pulse Ox 06/16/19 09:00 98.0 F 71 18 173/95 H 94 Medical Necessity - Tobacco Use Smoking Status: Never smoker Tobacco Use: Non-smoker Assessment/Plan All Active Problems Facial paresthesia (Acute) TIA (transient ischemic attack) (Acute) The patient is a 79 year old F with PMH HTN, HLD, DM, gout admitted with strokelike symptoms. Per patient she had acute onset of left arm pain, facial weakness, speech disturbances yesterday 06/15/2019. Per patient she was at [facility] and initially had acute onset left arm pain, followed by facial weakness, per he noticed a facial droop, initially patient could not speak and per her speech was slurred and garbled and he could not understand what she was trying to say, later they went home and at that time she had difficulty holding objects due to weakness in the left hand, per patient the whole incident lasted for about 15 to 20 minutes before her symptoms resolved. Per ED documentation NIHSS on admission was 0. Denies any neck pain, low back pain or radicular symptoms. Per patient she lives with her , denies any frequent falls, does not use cane or walker to ambulate, does drive and does not need any assistance for ADLs. Per patient she is on aspirin at baseline. CT head done on admission reported unremarkable. Impression Probable TIA Plan -Aspirin 81 mg p.o. once daily and Plavix 75 mg p.o. once daily. Dual antiplatelet for 3 weeks then switch to single antiplatelet with aspirin. Bleeding risk discussed in detail with the patient. ABCD2 score atleast 5 -On Pravachol -MRI brain images reviewed, MRA head/neck which is reviewed -HbA1c pending, LDL 86 -TTE-pending -30-day event recorder on discharge -Stroke risk factors discussed and stroke education provided -terminal carman goal BP < 130/80 mmHg, goal LDL < 70 and goal Hba1c < 7% -PT/OT/ST -GI/DVT prophylaxis -Fall precautions -Further medical management per hospitalist team -Please call with questions if any -Follow-up with neurology in 4 weeks -Thank you for allowing us to participate in patient's care and management This note has been generated using [employer] dictation software. It may contain incorrect words, spellings and punctuation that were not noted in the review of the note prior to signing
[2019-06-16 12:41] LABS: Hemoglobin A1c 8.5 % (4.2-6.3)
--- NOTE | 2019-06-16 12:53 | CHAPLAIN ---
Type of Pastoral Visit _x__ Initial Visit ___ Follow-up Visit ___ On-call Visit ___ General Patient Visit ___ Spiritual Assessment ___ Family Conference ___ Bereavement ___ Rapid Response ___ Code Blue ___ Other (describe below) Pastoral Care Referral From _x__ Patient ___ Family ___ Nurse ___ Physician ___ [employer] Sprayer ___ Legal Instructor ___ Other (describe below) Sacrament/Intervention _x__ Active listening ___ Anointing ___ Temple ___ Bereavement ___ Communion _x__ Karyn exploration ___ _x__ Life review _x__ Prayer ___ Reconciliation ___ Sacrament of Sick _x__ Supportive presence ___ Wedding ___ Other (describe below) Pastoral Comments patient had questions of spiritual concern and about re-connecting to her local confucianism
--- NOTE | 2019-06-16 15:06 | CASEMGMT ---
SW completed PHQ 9 with patient as she had a TIA. She scored a 2 which indicates minimal depression. She attributed these symptoms to her daughter moving out after living with her for a year. Valencia CANTU MSW
--- NOTE | 2019-06-16 15:24 | CASEMGMT ---
SW took patient information on [facility] [place]. This service helps blind individuals stay at home, learn how to adapt, mail books on tape to patient's, and do a home assessment to help make it easier on patient to get around. Valencia CANTU MSW
== END 2019-06-16 16:15 | disposition home or self-care (01) ==
LOC: ED 10:00 → PCU 12:19
PROVIDERS: Psychiatry & Neurology Neurology; Admitting Provider Internal Medicine; Emergency Provider Emergency Medicine; Family Provider Student in an Organized Health Care Education/Training Program; PCP Student in an Organized Health Care Education/Training Program; Referring Provider Internal Medicine; Visit Provider Internal Medicine
DX: G45.9 Transient cerebral ischemic attack, unspecified (principal); R20.2 Paresthesia of skin; I10 Essential (primary) hypertension; E11.9 Type 2 diabetes mellitus without complications; Z79.899 Other long term (current) drug therapy; Z79.82 Long term (current) use of aspirin; E78.5 Hyperlipidemia, unspecified; M10.9 Gout, unspecified; N28.9 Disorder of kidney and ureter, unspecified; R47.81 Slurred speech
CPT/HCPCS: 36415; 70450; 70544; 70547; 70551; 71045; 80048; 80061; 82962; 83036; 84484; 85025; 85610; 85730; 93005; 93306; 93880; 94762; 96360; 96361; 99218; 99251; 99285; J7030; A4216; G0378; G0463

== ENCOUNTER 2020-07-25 08:51 | Emergency (ER) | payer MEDICARE, OTHER, SELFPAY ==
[2019-06-16 09:57] VITALS: BMI 24.0
--- NOTE | 2020-07-25 08:52 | NURSING ---
STROKE ALERT CALLED [id number]
[2020-07-25 08:53] VITALS: BP 156/88; BP 169/106; PULSE 83; PULSE 86; RESP 18; RESP 20; RESP 22; O2SAT 97; O2SAT 98
--- NOTE | 2020-07-25 08:53 | RAD_ITS ---
STUDY: X-RAY CHEST REASON FOR EXAM: Female, 80 years old. STROKE LIKE SYMPTOMS TECHNIQUE: Single AP portable view of the chest. COMPARISON: 06/15/2019 FINDINGS: Poor inspiration with some bibasilar atelectasis. There is no demonstrated pleural abnormality. Normal size heart. Normal mediastinum and desmond. Normal visualized pulmonary arteries. Normal visualized aortic arch and descending thoracic aorta. Normal visualized thoracic spine. Normal visualized ribs, clavicles, and shoulders. There is no demonstrated abnormality of the visualized soft tissue structures of the upper abdomen. RAD/Chest 1 View IMPRESSION: Poor inspiration with some bibasilar atelectasis. Electronically Signed: Boyd Viera MD at 10:02 EST Tel , Service support ,
--- NOTE | 2020-07-25 08:53 | CT_ITS ---
STUDY: CT HEAD STROKE PROTOCOL W/O CONTRAST INJECTION REASON FOR EXAM: Female, 80 years old. CONFUSION/ NEURO DEFICIT RADIATION DOSAGE (If Supplied By Facility): CTDIvol = ( 44.99 ) mGy, DLP = ( 1496.61 ) mGycm TECHNIQUE: Transaxial CT imaging of the brain was performed without administration of intravenous contrast material. Individualized dose optimization techniques were used for this CT. COMPARISON: 06/15/2019 FINDINGS: Normal soft tissue structures. Normal calvarium. There is mild cerebral atrophy with widening of the extra-axial spaces and ventricular dilatation. There are areas of decreased attenuation within the white matter tracts of the supratentorial brain, consistent with microvascular disease changes. Normal basal ganglia and thalami. Normal brainstem. Normal cerebellum. There is no intracranial hemorrhage. There are no findings of an acute ischemic infarction. Normal visualized paranasal sinuses. ASPECT score: CT/STROKE Brain/Head without Cont IMPRESSION: Chronic involutional changes of the brain. N.B. : The above information has been verbally conveyed by Boyd Viera MD to Fawad Murray DO on 07/25/2020 09:10:43 (ET). Electronically Signed: Boyd Viera MD at 9:11 EST Tel , Service support ,
--- NOTE | 2020-07-25 08:53 | EKG12_ITS ---
Test Reason : STROKE Blood Pressure : / mmHG Vent. Rate : 075 BPM Atrial Rate : 075 BPM P-R Int : 218 ms QRS Dur : 090 ms QT Int : 426 ms P-R-T Axes : 064 004 023 degrees QTc Int : 475 ms Sinus rhythm with marked sinus arrhythmia with 1st degree A-V block Nonconducted PAC Otherwise normal ECG Confirmed by PREETI OLEA, XUAN ([id number]), editor at large ERNESTO STEPHENSON ([id number]) on 07/31/2020 9:18:30 AM Referred By: ANYA Confirmed By:ROHINI ÁLVAREZ MD
[2020-07-25 08:54] VITALS: BP 169/106; PULSE 84; RESP 18; O2SAT 98
[2020-07-25 08:57] VITALS: BP 189/109; PULSE 80; RESP 24; TEMP 36.6; O2SAT 98; BMI 25.1
[2020-07-25 09:00] LABS: Absolute Lymphocyte Count 2.82 X10^3/uL (0.83-4.51); Absolute Neutrophil Count 6.8 X10^3/uL (2.0-7.7); Basophil# 0.12 X10^3/uL; Eosinophil# 0.76 X10^3/uL; Eosinophils% 6.5 % (0-5); Hemoglobin 14.7 g/dL (12.0-15.0); Lymphocyte # 2.82 X10^3/ul (4.0); Lymphocyte % 24.2 % (19-41); Mean Corp Hgb Conc 32.7 g/dL (32-36); Mean Corpuscular Hgb 29.3 pg (27.0-32.0); Mean Corpuscular Volume 89.8 fL (81-99); Mean Platelet Vol. 10.4 fl (6.2-12.0); Monocyte% 9.5 % (0-10); NRBC Flagged by Analyzer 0 % (0-5); Neutrophil # 6.75 X10^3/uL (2.7-7.7); Neutrophil % 58.1 % (47-70); Platelet Count 300 K/mm3 (150-450); RBC Distribution Width CV 12.9 % (11.6-14.6); RBC Distribution Width SD 41.9 fl (35.1-43.9); Red Blood Count 5.01 M/mm3 (4.2-5.4); White Blood Count 11.6 K/mm3 (4.4-11.0)
--- NOTE | 2020-07-25 09:04 | NURSING ---
FACESHEET FAXED TO [facility]
[2020-07-25 09:12] LABS: Prothrombin Time (Protime)PT. 12.5 SECONDS (11.7-14.9)
[2020-07-25 09:13] LABS: Partial Thromboplast Time 23.7 Seconds (24.1-36.2)
[2020-07-25 09:16] VITALS: BMI 25.1
[2020-07-25 09:18] LABS: Anion Gap 2 (5-15); BUN 27 mg/dL (7-18); BUN/Creat Ratio 15.1 RATIO (10-20); Calcium,Total 9.5 mg/dL (8.5-10.1); Chloride 100 mmol/L (98-107); Creatinine, Serum 1.79 mg/dL (0.55-1.02); EST Glomerular Filtration Rate 29 mL/min (>60); Est Glom Filt Rate - Afr Amer 35 mL/min (>60); Estimated Creatinine Clearance 21.28 ml/min; Glucose 144 mg/dL (74-106); Potassium 3.9 mmol/L (3.5-5.1); Sodium Level 136 mmol/L (136-145)
[2020-07-25 09:23] VITALS: BP 159/118; PULSE 68; RESP 18; O2SAT 96
--- NOTE | 2020-07-25 09:39 | NURSING ---
CALLED [facility]. ETA IS 30 MIN
--- NOTE | 2020-07-25 09:43 | ED.DCSUM_ITS ---
History of Present Illness Chief Complaint: Neuro S/Sx Informant: Family Narrative: 80-year-old female presenting with altered mental status. On initial arrival patient was agitated and nonverbal. She had expressed to EMS that she had some chest pain. She was last known well at 7:30 AM per EMS. EMS did state that daughter will be coming to answer questions. - Past Medical History (1) TIA (transient ischemic attack) Status: Chronic (2) DM2 (diabetes mellitus, type 2) Status: Chronic (3) Essential (primary) hypertension Status: Chronic Past Medical History - Allergies and Home Meds Allergies/Adverse Reactions: Allergies No Known Allergies Allergy (Verified 06/15/19 09:33) Primary Care Physician: Ervin Beck DO [Primary Care Provider] - Prior records reviewed: Yes Past Medical History: None - Reviewed in problem list Lives: Alone Smoking Status: Never smoker Alcohol: None Drugs: None - Family History Maternal Family History: Reports: Heart Disease Review of Systems ROS: Unable to Obtain STROKE Vital Signs/Narrative: Vital Signs Temp Pulse Resp BP Pulse Ox 07/25/20 09:23 68 18 159/118 H 96 07/25/20 08:57 97.9 F 80 24 H 189/109 H 98 07/25/20 08:54 84 18 169/106 H 98 07/25/20 08:53 83 18 169/106 H 97 Inital Vital Signs reviewed: Yes General: Well nourished. Negative for: Unkempt Head: Normocephalic, Atraumatic Eyes: Perrl, EOMI ENT: Moist mucous membranes, No rhinorrhea Cardiovascular: Regular rate, Regular rhythm Respiratory: No distress, CTA bilaterally Abdomen: Soft, Nontender Extremities: Nontender, No edema Skin: Normal color, No rash. Negative for: Cyanosis, Diaphoresis Neurological: Alert, Cranial nerves II-XII grossly intact Psychological: Agitated, - - Confused Diagnostic/Tx/Re-eval - Rhythm Strip Rhythm Strip: Sinus Rhythm Rate: 75 - EKG Initial EKG Interpretation: Sinus Rhythm, No Acute Injury Pattern - Medical Decision Making Stroke Team Activated: Yes Reviewed Inclusion/Exclusion criteria: Yes Was Patient considered for Endovascular Intervention?: No IV Alteplase (t-PA) Administered: No No contraindications for IV Alteplase (t-PA) administration.: Yes Alteplase (t-PA) risks, benefits, alternative discussed: No Not given: Patient refusal: No Patient presents with confusion and agitation. Initially I was unable to get a good neurologic exam due to her confusion and inability to follow commands. She went to CT and I was able to get a CT brain however she was too agitated to continue for a CTA. She was brought back to the emergency room. At this point her daughter had arrived. Patient seems to be redirectable with her daughter here. She was able to answer her age but not her birthday or what month it is now. She has no obvious focal neurologic deficits. Patient is legally blind per her daughter. She states she feels her way around the house and she cannot see. Her NIH is 5. The telehealth neurologist also believes this. She did not want to do TPA however she was concerned as the daughter was expressing rapid memory loss and deterioration. Patient's daughter states that she was showing signs of bad memory about a year ago but over the last couple of months it has been getting worse. The neurologist wished to have the patient transferred to [facility] so she could be evaluated for rapidly generating neurologic problem. Daughter did agree to this. Patient was given aspirin in the ED. Lab work shows worsening renal function. She was given IV fluids. EKG is interpreted by myself shows sinus rhythm with a first-degree AV block however there is no ischemic change. CT brain is negative for acute process per the radiologist and my review. Patient will be transferred to [facility] in stable condition. Impression: 1. Acute delirium 2. TIA ED Disposition - Plan for ED Patient: Disposition: [facility] Referrals: Ervin Beck DO [Primary Care Provider] -
[2020-07-25 10:22] VITALS: BP 166/87; PULSE 67; RESP 18; O2SAT 96
--- NOTE | 2020-07-25 10:22 | CM.ED ---
Social Work Stroke alert. This social worker masters met with patient daughter in room. Introduced self as well as social worker masters role. Support provided to daughter. Jose QUIGLEY, MAXI
== END 2020-07-25 10:46 | disposition short-term general hospital (02) ==
PROVIDERS: Emergency Provider Student in an Organized Health Care Education/Training Program; PCP Student in an Organized Health Care Education/Training Program
DX: R41.0 Disorientation, unspecified (principal); G45.9 Transient cerebral ischemic attack, unspecified
CPT/HCPCS: 70450; 71045; 80048; 84484; 85025; 85610; 85730; 93005; 99285; A4216

== ENCOUNTER 2020-12-05 22:12 | Inpatient (IN) | payer MEDICARE, OTHER, SELFPAY ==
[2020-12-05 21:47] VITALS: BP 221/127; PULSE 115; RESP 15; TEMP 36.6; O2SAT 99; BMI 22.4
[2020-12-05 21:50] VITALS: PULSE 116
[2020-12-05 22:02] VITALS: BP 220/130; PULSE 106; RESP 17; O2SAT 100
--- NOTE | 2020-12-05 22:12 | ECHOD_ITS ---
Reason For Study: Murmur Procedure This was a 2D Doppler, Color Flow transthoracic echocardiogram. Exam performed portable in ICU/CCU. Left Ventricle Normal LV size. Moderate concentric left ventricular hypertrophy. Left ventricular systolic function is normal. Mild segmental systolic dysfunction (see wall motion). Segmental dysfunction with preserved ejection fraction (see wall motion). Stage 3 diastolic dysfunction. Infero-Basal: Hypokinetic. Basal inferoseptal: Hypokinetic. Posterior-Basal: Hypokinetic. Right Ventricle Normal RV size. Normal systolic function. Atria The left atrium is moderately enlarged. Normal right atrium. Mitral Valve There is mild mitral annular calcification. Tricuspid Valve Normal tricuspid valve. Mild (1+) tricuspid valve insufficiency. Pulmonary artery systolic pressure is 34 mmHg. Aortic Valve Trisinus/trileaflet aortic valve. Moderate focal aortic valve calcification. Peak aortic valve gradient 35 mmHg. Mean aortic valve gradient 19 mmHg. Moderate aortic stenosis. Great Vessels Normal aortic root. The pulmonary artery is normal size. Inferior vena cava collapse with sniff. Pericardium/Pleural No pericardial effusion. MMode/2D Measurements & Calculations LVIDd: 4.2 cm IVSd: 1.5 cm LVOT diam: 2.0 cm LVIDs: 3.1 cm LVPWd: 1.4 cm LVOT area: 3.0 cm2 RVDd: 3.1 cm FS: 25.6 % LA dimension: 4.4 cm LAV(MOD-bp): 86.7 ml LA A4 area: 26.4 cm2 LAV(MOD-bp) Indexed: 50.9 ml/m2 LAV(MOD-sp2): 71.8 ml LAV(MOD-sp4): 92.1 ml RA A4 area: 15.1 cm2 Time Measurements MV dec time: 0.16 sec Doppler Measurements & Calculations MV E max hilario: 101.5 cm/sec Lat Peak E' Hilario: 7.7 cm/sec Med Peak E' Hilario: 7.7 cm/sec MV A max hilario: 30.6 cm/sec E/E' lat: 13.2 E/E' med: 13.1 MV E/A: 3.3 MV V2 max: 99.7 cm/sec MV P1/2t max hilario: 53.7 cm/sec Ao V2 max: 294.4 cm/sec MV max P.0 mmHg MV P1/2t: 79.1 msec Ao max P.8 mmHg MV V2 mean: 51.4 cm/sec MV dec slope: 199.0 cm/sec2 Ao V2 mean: 203.4 cm/sec MV mean P.3 mmHg MVA(P1/2t): 2.8 cm2 Ao mean P.2 mmHg MV V2 VTI: 16.6 cm Ao V2 VTI: 66.0 cm MVA(VTI): 2.2 cm2 ANNA(I,D): 0.56 cm2 ANNA(V,D): 0.68 cm2 LV V1 max: 65.7 cm/sec SV(LVOT): 36.7 ml PA V2 max: 108.8 cm/sec LV V1 max P.7 mmHg LV V1 mean P.87 mmHg LV V1 mean: 43.2 cm/sec LV V1 VTI: 12.1 cm TR max hilario: 274.4 cm/sec TR max P.1 mmHg ECHO/Echo Complete Interpretation Summary Normal LV size. Left ventricular systolic function is normal. Mild segmental systolic dysfunction (see wall motion). Segmental dysfunction with preserved ejection fraction (see wall motion). Stage 3 diastolic dysfunction. Moderate concentric left ventricular hypertrophy. Moderate aortic stenosis. The left atrium is moderately enlarged. Ordering Physician: Gunnar Carrasquillo Referring Physician: Ervin Beck Performed By: Agustin Wright RCS
[2020-12-05 22:17] VITALS: BP 225/111; PULSE 113; RESP 18; O2SAT 99
--- NOTE | 2020-12-05 22:19 | PCM.HP.STD ---
HPI - General General Date of Admission: 12/05/20 HPI Narrative HEMANT TOM, is a 80 F with a significant history of hypertension and diabetes who was sent to outside hospital ([facility]) ED because of lightheadedness while at the restaurant. Stroke was initial consideration at outside hospital ED. While patient reported light headedness reports received from outside Hospital was that patient was confused but her confusion improved at the ED. NIH at outside Hospital was scored as a 1 (vision changes). CT brain was negative. Blood glucose was 664. Patient was diagnosed with HHS and was started on insulin drip. EKG showed sinus tach with PVCs. Chest x-ray was unremarkable. pH was 7.38. PCO2 was 49. Ketone was negative. Sodium was 130. Bicarbonate was 29. LFTs were negative. COVID-19 was negative. Troponin was negative. Blood pressure was 183/100 [facility] Medical History DM2 (diabetes mellitus, type 2) Essential (primary) hypertension Facial paresthesia TIA (transient ischemic attack) Home Medications allopurinol 300 mg PO DAILY 06/15/19 [History Last Taken 06/15/19] aspirin 81 mg PO DAILY 06/15/19 [History Last Taken 06/15/19] atenolol 100 mg PO DAILY 06/15/19 [History Last Taken 06/15/19] dulaglutide 1.5 mg SQ [place] 06/15/19 [History Last Taken 06/13/19] enalapril maleate 20 mg PO DAILY 06/15/19 [History Last Taken 06/15/19] hydrochlorothiazide 25 mg PO DAILY 06/15/19 [History Last Taken 06/15/19] insulin glargine 50 unit SQ BID 06/15/19 [History Last Taken 06/15/19] pravastatin 20 mg PO DAILY 06/15/19 [History Last Taken 06/14/19] clopidogrel 75 mg PO DAILY #20 tab 06/16/19 [Rx Last Taken Unknown] Allergy/AdvReac Type Severity Reaction Status Date / Time No Known Allergies Allergy Verified 06/15/19 09:33 Family History Other Hypertension Surgical History History of appendectomy History of cholecystectomy Social History Smoking Status: Never smoker ROS ROS Narrative Twelve point review of system is negative except as stated in HPI Vital Signs Vital Signs Vital Signs: 12/05/20 21:50 Pulse Rate 116 H Physical Exam Narrative Alert and oriented x3 Nontraumatic; normocephalic Lung clear to auscultate Heart sounds S1-S2. Murmur 5 out of 6. No gallop or rubs. Abdomen bowel sounds present soft, nontender nondistended Extremity without edema cyanosis or clubbing. Lab / Micro Data Result Diagrams: 12/05/20 22:45 12/05/20 22:45 Assessment & Plan Assessment/Plan (1) Hypertensive emergency: (2) Hyperosmolar hyperglycemic state (HHS): (3) Essential (primary) hypertension: (4) DM2 (diabetes mellitus, type 2): QUALIFIERS: Diabetes mellitus complication detail: without coma Diabetes mellitus complication status: with hyperosmolarity Diabetes mellitus residential insulin use: with terminal superintendent use Qualified Code(s): E11.00 - Type 2 diabetes mellitus with hyperosmolarity without nonketotic hyperglycemic-hyperosmolar coma ([facility]); Z79.4 - nursing home (current) use of insulin (5) Hypomagnesemia: PLAN: Hypertensive emergency Systolic blood pressure is in the 220s. Will decrease blood pressure in the first 24 hours with a goal of keeping blood pressure between 165 to 180. Labetalol as needed ordered. Resume Home blood pressure medication as soon as verified. Blood pressures. With a significant murmur echocardiogram ordered Admit to intensive care unit. Consult parent trainer. HHS Received normal saline bolus and was started on normal saline maintenance infusion at outside hospital ED. Insulin drip started at outside hospital. Blood glucose now is in the 300s. Accu-Chek every 4 hours with correction scale insulin ordered. Keep n.p.o. for now. Check A1c. Check serum osmolarity. BMP stat. Trend CBC and BMP Hypomagnesemia Replaced DVT Prophylaxis: Subcutaneous heparin ordered. Visit Charges Inpatient E&M: 11410 Init Hosp L3
[2020-12-05] MEDS: Labetalol (Prefilled) 20 MG/4 ML 10 MG IV (22:30)
[2020-12-05] MEDS: 0.9% Normal Saline 1,000 ML 75 ML IV (22:30)
[2020-12-05 22:32] VITALS: BP 230/123; PULSE 114; RESP 19; O2SAT 94
[2020-12-05 22:51] LABS: Bedside Glucose 382 mg/dL (70-110)
[2020-12-05] MEDS: Insulin Lispro 100 UNIT/ML INSULN.PEN SC (23:06)
[2020-12-05 23:08] LABS: Anion Gap 5 (5-15); BUN 25 mg/dL (7-18); BUN/Creat Ratio 13.1 RATIO (10-20); Calcium,Total 8.9 mg/dL (8.5-10.1); Chloride 102 mmol/L (98-107); Creatinine, Serum 1.91 mg/dL (0.55-1.02); EST Glomerular Filtration Rate 27 mL/min (>60); Est Glom Filt Rate - Afr Amer 32 mL/min (>60); Estimated Creatinine Clearance 21.63 ml/min; Glucose 350 mg/dL (74-106); Magnesium 1.7 mg/dL (1.6-2.6); Potassium 4.8 mmol/L (3.5-5.1); Sodium Level 135 mmol/L (136-145)
[2020-12-05 23:12] LABS: Hemoglobin A1c 10.5 % (3.8-5.6)
[2020-12-05 23:14] LABS: Phosphorus 2.9 mg/dL (2.5-4.9)
[2020-12-05] MEDS: Heparin Injection (Vial) 5,000 UNIT/ML VIAL 5000 UNIT SC (23:28)
[2020-12-05 23:47] VITALS: BP 175/98; PULSE 102; RESP 15; O2SAT 98
[2020-12-06] VITALS (24 sets, daily range): BP systolic 116–194; BP diastolic 48–109; PULSE 65–111; RESP 12–20; TEMP 36.4–37.1; O2SAT 94–100
[2020-12-06 00:18] LABS: Osmolality, Serum 310 mOsm/KG (280-301)
[2020-12-06] MEDS: Insulin Lispro 100 UNIT/ML INSULN.PEN SC ×5 (01:59→23:25)
[2020-12-06 02:15] LABS: Bedside Glucose 280 mg/dL (70-110)
[2020-12-06 04:11] LABS: Bedside Glucose 260 mg/dL (70-110)
[2020-12-06 04:16] LABS: Absolute Lymphocyte Count 1.74 X10^3/uL (0.83-4.51); Absolute Neutrophil Count 5.3 X10^3/uL (2.0-7.7); Basophil# 0.07 X10^3/uL; Basophil% 0.8 % (0-1); Eosinophil# 0.51 X10^3/uL; Hematocrit 38.2 % (37-47); Lymphocyte # 1.74 X10^3/ul (0.83-4.51); Lymphocyte % 20.6 % (19-41); Mean Corpuscular Hgb 29.5 pg (27.0-32.0); Mean Corpuscular Volume 86.8 fL (81-99); Mean Platelet Vol. 10.1 fl (6.2-12.0); Monocyte# 0.84 X10^3/uL; Monocyte% 9.9 % (0-10); NRBC Flagged by Analyzer 0 % (0-5); Neutrophil # 5.27 X10^3/uL (2.7-7.7); Neutrophil % 62.3 % (47-70); Platelet Count 196 K/mm3 (150-450); RBC Distribution Width CV 12.3 % (11.6-14.6); RBC Distribution Width SD 39.1 fl (35.1-43.9); White Blood Count 8.5 K/mm3 (4.4-11.0)
[2020-12-06] MEDS: Labetalol (Prefilled) 20 MG/4 ML 10 MG IV ×2 (04:24→12:09)
[2020-12-06 04:31] LABS: Anion Gap 6 (5-15); BUN 23 mg/dL (7-18); BUN/Creat Ratio 13.7 RATIO (10-20); Calcium,Total 8.6 mg/dL (8.5-10.1); Chloride 105 mmol/L (98-107); Creatinine, Serum 1.68 mg/dL (0.55-1.02); EST Glomerular Filtration Rate 31 mL/min (>60); Est Glom Filt Rate - Afr Amer 38 mL/min (>60); Estimated Creatinine Clearance 24.59 ml/min; Glucose 258 mg/dL (74-106); Potassium 3.8 mmol/L (3.5-5.1); Sodium Level 140 mmol/L (136-145)
[2020-12-06 05:56] LABS: Bedside Glucose 236 mg/dL (70-110)
--- NOTE | 2020-12-06 06:21 | EKG12_ITS ---
Test Reason : ARRYTHMIA Blood Pressure : / mmHG Vent. Rate : 082 BPM Atrial Rate : 097 BPM P-R Int : 000 ms QRS Dur : 088 ms QT Int : 420 ms P-R-T Axes : 066 003 040 degrees QTc Int : 490 ms Sinus rhythm with 2nd degree A-V block (Mobitz I) Nonspecific T wave abnormality Prolonged QT Abnormal ECG When compared with ECG of 06-DEC-2020 06:55, Sinus rhythm is now with 2nd degree A-V block (Mobitz I) Nonspecific T wave abnormality no longer evident in Anterior leads QT has shortened Confirmed by JUAN LUIS OLEA, ABEL ([id number]), managing editor ERNESTO STEPHENSON ([id number]) on 12/12/2020 9:46:59 AM Referred By: PRISCA Confirmed By:ABEL MCKNIGHT MD
--- NOTE | 2020-12-06 08:09 | CON.PCM.CC_ITS ---
Assessment & Plan Assessment/Plan (1) PRES (posterior reversible encephalopathy syndrome): (2) Hypertensive emergency: (3) Hyperosmolar hyperglycemic state (HHS): (4) DM2 (diabetes mellitus, type 2): QUALIFIERS: Diabetes mellitus complication detail: without coma Diabetes mellitus complication status: with hyperosmolarity Diabetes mellitus l samantha term insulin use: with detention use Qualified Code(s): E11.00 - Type 2 diabetes mellitus with hyperosmolarity without nonketotic hyperglycemic- hyperosmolar coma ([facility]); Z79.4 - moth exterminator (current) use of insulin (5) Essential (primary) hypertension: (6) Hypomagnesemia: (7) CKD (chronic kidney disease) stage 3, GFR 30-59 ml/min: PLAN: RECOMMENDATIONS: 1. Clarify home medications and reinitiate baseline antihypertensives 2. Continue labetalol as needed for systolic greater than 180 3. No indication for an insulin drip from my perspective 4. Diabetic teaching IMPRESSIONS: 1. Hypertensive emergency with concerns for PRES Patient with intermittent confusion and significantly elevated blood pressures. Will need to verify home medications, but patient is acting like she is has an element of rebound hypertension. We will reinitiate baseline medications and reassess. Patient does not require a Cardene drip from my perspective at this time. As needed labetalol will be continued. Continue to monitor neurologic exam. 2. Hyperosmolar nonketotic state secondary to uncontrolled diabetes mellitus Clinical suspicion for noncompliance leading to elevated blood sugars. Patient appears to be well controlled at this time. Patient does not have any signs or symptoms of sepsis/infection leading to uncontrolled blood sugars. We will continue baseline Lantus therapy. 3. Chronic kidney disease stage IIIb Patient did present in 2019 with a GFR of around 30. Patient's current renal function appears to be about that level. No indication for renal replacement therapy. Patient does have multiple comorbidities such as diabetes and hypertension that can lead to progression of renal disease. This can likely be followed up as an outpatient. 4. Previous TIA/poor history/hypomagnesemia Complicates care, management, recovery and prognosis. We will attempt to clarify history today. Patient's medications and other complications need to be evaluated. HPI Consult Data Date of Consult: 12/06/20 HPI Narrative HPI Narrative: HEMANT TOM is an 80-year-old female, with past medical history listed below, who presented from an outside emergency department secondary to multiple issues. Patient had presented to this facility secondary to lightheadedness while at a restaurant. Patient was initially considered for a stroke work-up, but NIH was scored as 1 only secondary to visual changes. A CT of the head was negative at that time. Patient was found to have a glucose of 664 at that time and was started on an insulin drip. EKG had shown sinus tach with PVCs and a chest x-ray was reportedly unremarkable. Patient did have a slightly elevated PCO2 of 49, but pH was compensated at 7.38. Bicarbonate was elevated at 29 and LFTs were normal. COVID-19 testing, troponin and LFTs were all negative. Blood pressure was elevated at 183/100. Since arrival to the intensive care unit, nursing has reported intermittent mental status. Patient will have periods for 15 to 20 minutes where she is unclear on where she is at. Patient will also continually answer okay without focal weakness. No stroke team was ordered. Patient's blood sugars have been controlled using subcu insulin without a drip. Patient has no recollection of why she presented to the emergency department in the first place. Patient also has no recollection of what medications she takes on a daily basis. Patient states that her daughter handles most of her medications. Review of the medical record shows the patient has presented in the past with TIA with a negative work-up. Patient was recommended to be on dual antiplatelet therapy at that time. It is unclear if she has been compliant with this recommendation. Currently, the patient is not reporting any chest pain, abdominal pain, nausea or vomiting. Patient denies any recent constitutional symptoms. Patient does not check her sugars regularly. Patient has very poor insight into her current health status. Unable to obtain a complete review of systems secondary to poor insight [facility] Medical History DM2 (diabetes mellitus, type 2) Essential (primary) hypertension Facial paresthesia TIA (transient ischemic attack) Home Medications allopurinol 300 mg PO DAILY 06/15/19 [History Last Taken 06/15/19] aspirin 81 mg PO DAILY 06/15/19 [History Last Taken 06/15/19] atenolol 100 mg PO DAILY 06/15/19 [History Last Taken 06/15/19] dulaglutide 1.5 mg SQ [place] 06/15/19 [History Last Taken 06/13/19] enalapril maleate 20 mg PO DAILY 06/15/19 [History Last Taken 06/15/19] hydrochlorothiazide 25 mg PO DAILY 06/15/19 [History Last Taken 06/15/19] insulin glargine 50 unit SQ BID 06/15/19 [History Last Taken 06/15/19] pravastatin 20 mg PO DAILY 06/15/19 [History Last Taken 06/14/19] clopidogrel 75 mg PO DAILY 12/05/20 [History Last Taken Unknown] Allergy/AdvReac Type Severity Reaction Status Date / Time No Known Allergies Allergy Verified 06/15/19 09:33 Family History Other Hypertension Surgical History History of appendectomy History of cholecystectomy Social History Smoking Status: Never smoker ROS ROS Narrative See HPI Physical Exam Const alert and oriented x3 General Appearance: cooperative HEENT normocephalic Head and Scalp: atraumatic Eyes PERRL and EOMs intact bilaterally Neck supple, no JVD and no carotid bruits Resp normal respiratory effort and clear to auscultation bilaterally Cardio regular rate and no murmurs GI normal to inspection, nondistended, normoactive bowel sounds and soft to palpation Extremity normal capillary refill General Extremity: Negative for edema Skin no rashes or lesions noted Neuro CN's II-XII intact bilaterally Psych cooperative Mood & Affect: flat affect Attention / Concentration: attention grossly impaired Lab / Micro Data Result Diagrams: 12/06/20 04:10 12/06/20 04:10 Labs: Laboratory Results - last 24 hr 12/05/20 12/05/20 12/05/20 22:04 22:45 22:45 WBC RBC Hgb Hct MCV MCH MCHC RDW Std Deviation RDW Coeff of Meagan Plt Count MPV Immature Gran % (Auto) Neut % (Auto) Lymph % (Auto) [place] % (Auto) Eos % (Auto) Baso % (Auto) Absolute Neuts (auto) Absolute Lymphs (auto) Nucleated RBC % Sodium 135 L Potassium 4.8 Chloride 102 Carbon Dioxide 28.0 Anion Gap 5 BUN 25 H Creatinine 1.91 H Estim Creat Clear Calc 21.63 Est GFR (MDRD) Af Amer 32 L Est GFR (MDRD) Non-Af 27 L BUN/Creatinine Ratio 13.1 Glucose 350 H Hemoglobin A1c Serum Osmolality Calcium 8.9 Phosphorus 2.9 Magnesium 1.7 POC Glucose 382 H 12/05/20 12/05/20 12/06/20 22:45 22:45 01:56 WBC RBC Hgb Hct MCV MCH MCHC RDW Std Deviation RDW Coeff of Meagan Plt Count MPV Immature Gran % (Auto) Neut % (Auto) Lymph % (Auto) [place] % (Auto) Eos % (Auto) Baso % (Auto) Absolute Neuts (auto) Absolute Lymphs (auto) Nucleated RBC % Sodium Potassium Chloride Carbon Dioxide Anion Gap BUN Creatinine Estim Creat Clear Calc Est GFR (MDRD) Af Amer Est GFR (MDRD) Non-Af BUN/Creatinine Ratio Glucose Hemoglobin A1c 10.5 H Serum Osmolality 310 H Calcium Phosphorus Magnesium POC Glucose 280 H 12/06/20 12/06/20 12/06/20 04:04 04:10 04:10 WBC 8.5 RBC 4.40 Hgb 13.0 Hct 38.2 MCV 86.8 MCH 29.5 MCHC 34.0 RDW Std Deviation 39.1 RDW Coeff of Meagan 12.3 Plt Count 196 MPV 10.1 Immature Gran % (Auto) 0.400 Neut % (Auto) 62.3 Lymph % (Auto) 20.6 [place] % (Auto) 9.9 Eos % (Auto) 6.0 H Baso % (Auto) 0.8 Absolute Neuts (auto) 5.3 Absolute Lymphs (auto) 1.74 Nucleated RBC % 0 Sodium 140 Potassium 3.8 Chloride 105 Carbon Dioxide 29.0 Anion Gap 6 BUN 23 H Creatinine 1.68 H Estim Creat Clear Calc 24.59 Est GFR (MDRD) Af Amer 38 L Est GFR (MDRD) Non-Af 31 L BUN/Creatinine Ratio 13.7 Glucose 258 H Hemoglobin A1c Serum Osmolality Calcium 8.6 Phosphorus Magnesium POC Glucose 260 H 12/06/20 05:50 WBC RBC Hgb Hct MCV MCH MCHC RDW Std Deviation RDW Coeff of Meagan Plt Count MPV Immature Gran % (Auto) Neut % (Auto) Lymph % (Auto) [place] % (Auto) Eos % (Auto) Baso % (Auto) Absolute Neuts (auto) Absolute Lymphs (auto) Nucleated RBC % Sodium Potassium Chloride Carbon Dioxide Anion Gap BUN Creatinine Estim Creat Clear Calc Est GFR (MDRD) Af Amer Est GFR (MDRD) Non-Af BUN/Creatinine Ratio Glucose Hemoglobin A1c Serum Osmolality Calcium Phosphorus Magnesium POC Glucose 236 H All diagnostic, laboratory and medical records were personally reviewed. Charges/Coding Visit Charges Inpatient E&M: 73534 Init Hosp L3
[2020-12-06] MEDS: hydroCHLOROthiazide 25 MG Tablet PO (09:37)
[2020-12-06] MEDS: Clopidogrel Bisulfate 75 MG Tablet PO (09:38)
[2020-12-06] MEDS: Lisinopril 20 MG Tablet PO (09:38)
[2020-12-06] MEDS: Atenolol 100 MG Tablet PO (09:38)
[2020-12-06] MEDS: Aspirin E.C. 81 MG Tablet PO (09:38)
--- NOTE | 2020-12-06 10:19 | NURSING ---
RN CM Assessment Introduced role of RN CM to patient. Patient is alert, oriented and able to participate in RN CM Assessment. Care providers, pharmacy, and demographics verified. Admit Dx: HHS, Hypertensive Emergency Re-Admit: No Barriers/Issues: None identified at this time. Patient appears to be noncompliant with her Diabetes management. Has Glucometer and checks blood sugar sometimes. [facility] Nutrition to speak with patient regarding diabetes management. Dtr Jazz lives in [place] now. PCP: Ervin Beck Specialists: None Preferred Pharmacy: [facility] Insurance: [employer] A/B, Pledge51na Rx Benefit: Yes LNOK: Dtr Jazz Green and dtr My Zaidi LW/HPOA:Has LW and in process of completing HPOA- states primary agent will be her Dtr My Zaidi. Aware if papers are brought in a copy will be scanned on file. Living Arrangements: Lives with partner Rony in a [facility], 2-3 steps to enter home with rails. ADL?s: Independent with ambulation and ADLs Transportation: Patient does not drive, partner Rony does the driving and will upon discharge. DME: Glucometer HHC: None SNF: None Goal: Home and does not think will have any needs. Denies any issues, needs, or concerns with DC planning at this time. Aware RNCM will continue to follow should any needs arise. DC PLAN: Home and no anticipated needs. GERA Kang
[2020-12-06 11:46] LABS: Bedside Glucose 342 mg/dL (70-110)
[2020-12-06] MEDS: 0.9% Saline Lock 10 ML Syringe IV (12:09)
--- NOTE | 2020-12-06 14:22 | PCM.PN.HOSP ---
Subjective Subjective Feels well. Objective Data Objective Data Vital Signs: Vital Signs Temp Pulse Resp BP Pulse Ox 36.4 C L 84 15 116/64 98 12/06/20 12:00 12/06/20 14:00 12/06/20 14:00 12/06/20 14:00 12/06/20 14:00 Oxygen Delivery Method Room Air Weight: 62.3 kg Body Mass Index (BMI) 22.4 Finger Stick Blood Glucose 199 Intake & Output: Intake and Output for Last 24 Hours 12/04/20 12/05/20 12/06/20 23:59 23:59 23:59 Intake Total 75 / 75 1074 / 1074 Output Total 150 / 150 Balance 75 / 75 924 / 924 Lab / Micro Data Result Diagrams: 12/06/20 04:10 12/06/20 04:10 Labs: Laboratory Results - last 24 hr 12/05/20 12/05/20 12/05/20 22:04 22:45 22:45 WBC RBC Hgb Hct MCV MCH MCHC RDW Std Deviation RDW Coeff of Meagan Plt Count MPV Immature Gran % (Auto) Neut % (Auto) Lymph % (Auto) [place] % (Auto) Eos % (Auto) Baso % (Auto) Absolute Neuts (auto) Absolute Lymphs (auto) Nucleated RBC % Sodium 135 L Potassium 4.8 Chloride 102 Carbon Dioxide 28.0 Anion Gap 5 BUN 25 H Creatinine 1.91 H Estim Creat Clear Calc 21.63 Est GFR (MDRD) Af Amer 32 L Est GFR (MDRD) Non-Af 27 L BUN/Creatinine Ratio 13.1 Glucose 350 H Hemoglobin A1c Serum Osmolality Calcium 8.9 Phosphorus 2.9 Magnesium 1.7 POC Glucose 382 H 12/05/20 12/05/20 12/06/20 22:45 22:45 01:56 WBC RBC Hgb Hct MCV MCH MCHC RDW Std Deviation RDW Coeff of Meagan Plt Count MPV Immature Gran % (Auto) Neut % (Auto) Lymph % (Auto) [place] % (Auto) Eos % (Auto) Baso % (Auto) Absolute Neuts (auto) Absolute Lymphs (auto) Nucleated RBC % Sodium Potassium Chloride Carbon Dioxide Anion Gap BUN Creatinine Estim Creat Clear Calc Est GFR (MDRD) Af Amer Est GFR (MDRD) Non-Af BUN/Creatinine Ratio Glucose Hemoglobin A1c 10.5 H Serum Osmolality 310 H Calcium Phosphorus Magnesium POC Glucose 280 H 12/06/20 12/06/20 12/06/20 04:04 04:10 04:10 WBC 8.5 RBC 4.40 Hgb 13.0 Hct 38.2 MCV 86.8 MCH 29.5 MCHC 34.0 RDW Std Deviation 39.1 RDW Coeff of Meagan 12.3 Plt Count 196 MPV 10.1 Immature Gran % (Auto) 0.400 Neut % (Auto) 62.3 Lymph % (Auto) 20.6 [place] % (Auto) 9.9 Eos % (Auto) 6.0 H Baso % (Auto) 0.8 Absolute Neuts (auto) 5.3 Absolute Lymphs (auto) 1.74 Nucleated RBC % 0 Sodium 140 Potassium 3.8 Chloride 105 Carbon Dioxide 29.0 Anion Gap 6 BUN 23 H Creatinine 1.68 H Estim Creat Clear Calc 24.59 Est GFR (MDRD) Af Amer 38 L Est GFR (MDRD) Non-Af 31 L BUN/Creatinine Ratio 13.7 Glucose 258 H Hemoglobin A1c Serum Osmolality Calcium 8.6 Phosphorus Magnesium POC Glucose 260 H 12/06/20 12/06/20 05:50 11:36 WBC RBC Hgb Hct MCV MCH MCHC RDW Std Deviation RDW Coeff of Meagan Plt Count MPV Immature Gran % (Auto) Neut % (Auto) Lymph % (Auto) [place] % (Auto) Eos % (Auto) Baso % (Auto) Absolute Neuts (auto) Absolute Lymphs (auto) Nucleated RBC % Sodium Potassium Chloride Carbon Dioxide Anion Gap BUN Creatinine Estim Creat Clear Calc Est GFR (MDRD) Af Amer Est GFR (MDRD) Non-Af BUN/Creatinine Ratio Glucose Hemoglobin A1c Serum Osmolality Calcium Phosphorus Magnesium POC Glucose 236 H 342 H Radiography Diagnostic Testing: Radiology Impression Echocardiogram 12/05/20 22:12 Interpretation Summary Normal LV size. Left ventricular systolic function is normal. Mild segmental systolic dysfunction (see wall motion). Segmental dysfunction with preserved ejection fraction (see wall motion). Stage 3 diastolic dysfunction. Moderate concentric left ventricular hypertrophy. Moderate aortic stenosis. The left atrium is moderately enlarged. Ordering Physician: Gunnar Carrasquillo Referring Physician: Ervin Beck Performed By: Agustin Wright RCS Physical Exam Const alert HEENT Head and Scalp: normocephalic Resp normal respiratory effort and clear to auscultation bilaterally Cardio regular rate, regular rhythm, S1 normal heart sound and S2 normal heart sound GI normal to inspection, nondistended, normoactive bowel sounds, non-tender and non-distended Extremity normal to inspection Neuro Sensorium / Orientation: awake and alert Psych affect normal Assessment & Plan Assessment/Plan (1) Hypertensive emergency: (2) Hyperosmolar hyperglycemic state (HHS): (3) Essential (primary) hypertension: (4) DM2 (diabetes mellitus, type 2): QUALIFIERS: Diabetes mellitus buttermaker insulin use: with buttermaker use Diabetes mellitus complication status: with hyperosmolarity Diabetes mellitus complication detail: without coma Qualified Code(s): E11.00 - Type 2 diabetes mellitus with hyperosmolarity without nonketotic hyperglycemic-hyperosmolar coma (N[facility]HC); Z79.4 - retirement (current) use of insulin (5) Hypomagnesemia: PLAN: Hypertensive emergency resolved Systolic blood pressure is in the 220s. Will decrease blood pressure in the first 24 hours with a goal of keeping blood pressure between 165 to 180. Labetalol as needed ordered. Resume Home blood pressure medication as soon as verified. On atenolol, lisinopril and HCTZ HHS resolved a1c 10.5 on Glargine 50 units and SSI Hypomagnesemia Replaced DVT Prophylaxis: Subcutaneous heparin ordered. Dispostion: TF to PCU. Anticipate dc in 1-2 days Visit Charges Inpatient E&M: 83845 Subs Hosp L2
--- NOTE | 2020-12-06 15:17 | EKG12_ITS ---
Test Reason : ABNORMAL TELEMETRY Blood Pressure : / mmHG Vent. Rate : 095 BPM Atrial Rate : 122 BPM P-R Int : 160 ms QRS Dur : 086 ms QT Int : 436 ms P-R-T Axes : 006 001 -87 degrees QTc Int : 547 ms Normal sinus rhythm with PVC's Nonspecific T wave abnormality Prolonged QT Abnormal ECG When compared with ECG of 25-JUL-2020 09:07, Current undetermined rhythm precludes rhythm comparison, needs review Nonspecific T wave abnormality, worse in Anterolateral leads QT has lengthened Confirmed by JUAN LUIS OLEA, ABEL ([id number]), general expeditor ERNESTO STEPHENSON ([id number]) on 12/07/2020 1:32:29 PM Referred By: PRISCA Confirmed By:ABEL MCKNIGHT MD
[2020-12-06 16:01] LABS: Bedside Glucose 356 mg/dL (70-110)
[2020-12-06] MEDS: Heparin Injection (Vial) 5,000 UNIT/ML VIAL 5000 UNIT SC (23:27)
[2020-12-06] MEDS: Pravastatin 20 MG Tablet PO (23:28)
[2020-12-06 23:45] LABS: Bedside Glucose 214 mg/dL (70-110)
[2020-12-07] VITALS (8 sets, daily range): BP systolic 122–179; BP diastolic 73–93; PULSE 58–85; RESP 14–65; TEMP 36.6–37.2; O2SAT 95–98
[2020-12-07 05:09] LABS: Anion Gap 5 (5-15); BUN 22 mg/dL (7-18); BUN/Creat Ratio 14.6 RATIO (10-20); Calcium,Total 8.3 mg/dL (8.5-10.1); Chloride 107 mmol/L (98-107); Creatinine, Serum 1.51 mg/dL (0.55-1.02); EST Glomerular Filtration Rate 35 mL/min (>60); Est Glom Filt Rate - Afr Amer 43 mL/min (>60); Estimated Creatinine Clearance 27.35 ml/min; Glucose 65 mg/dL (74-106); Potassium 3.7 mmol/L (3.5-5.1); Sodium Level 140 mmol/L (136-145)
--- NOTE | 2020-12-07 07:25 | PCM.PN.INT ---
Subjective Subjective Patient did okay overnight. Patient with no complaints this morning. Patient did have an episode of focal neurologic deficits yesterday afternoon. This resolved spontaneously. This was associated with some hypertension. Patient's blood sugars had been elevated overnight, but morning BMP did show hypoglycemia. Patient was asymptomatic and received some p.o. therapy with good response. Objective Data Objective Data All labs and imaging were personally reviewed. Echocardiogram showed preserved ejection fraction with significant LVH and moderate aortic stenosis Vital Signs: Vital Signs Temp Pulse Resp BP Pulse Ox 37.2 C 58 L 65 H 134/86 H 95 12/07/20 05:00 12/07/20 07:19 12/07/20 05:00 12/07/20 05:00 12/07/20 05:00 Oxygen Delivery Method Room Air Weight: 62.6 kg Body Mass Index (BMI) 22.4 Finger Stick Blood Glucose 199 Intake & Output: Intake and Output for Last 24 Hours 12/05/20 12/06/20 12/07/20 23:59 23:59 23:59 Intake Total 75 / 75 1074 / 1099 25 / 25 Output Total 150 / 150 Balance 75 / 75 924 / 949 25 / 25 Lab / Micro Data Result Diagrams: 12/06/20 04:10 12/07/20 04:50 Labs: Laboratory Results - last 24 hr 12/06/20 12/06/20 12/06/20 11:36 15:54 23:24 Sodium Potassium Chloride Carbon Dioxide Anion Gap BUN Creatinine Estim Creat Clear Calc Est GFR (MDRD) Af Amer Est GFR (MDRD) Non-Af BUN/Creatinine Ratio Glucose Calcium POC Glucose 342 H 356 H 214 H 12/07/20 04:50 Sodium 140 Potassium 3.7 Chloride 107 Carbon Dioxide 28.0 Anion Gap 5 BUN 22 H Creatinine 1.51 H Estim Creat Clear Calc 27.35 Est GFR (MDRD) Af Amer 43 L Est GFR (MDRD) Non-Af 35 L BUN/Creatinine Ratio 14.6 Glucose 65 L Calcium 8.3 L POC Glucose Radiography Diagnostic Testing: Radiology Impression Echocardiogram 12/05/20 22:12 Interpretation Summary Normal LV size. Left ventricular systolic function is normal. Mild segmental systolic dysfunction (see wall motion). Segmental dysfunction with preserved ejection fraction (see wall motion). Stage 3 diastolic dysfunction. Moderate concentric left ventricular hypertrophy. Moderate aortic stenosis. The left atrium is moderately enlarged. Ordering Physician: Gunnar Carrasquillo Referring Physician: Ervin Beck Performed By: Agustin Wright RCS Physical Exam Const alert and oriented x3 General Appearance: cooperative HEENT normocephalic Eyes PERRL and EOMs intact bilaterally Neck supple, no JVD and no carotid bruits Resp normal respiratory effort and clear to auscultation bilaterally Cardio regular rate and no murmurs GI normal to inspection, nondistended, normoactive bowel sounds and soft to palpation Extremity normal capillary refill General Extremity: Negative for edema Skin no rashes or lesions noted Neuro CN's II-XII intact bilaterally Psych cooperative Mood & Affect: flat affect Attention / Concentration: attention grossly impaired Assessment & Plan Assessment/Plan (1) PRES (posterior reversible encephalopathy syndrome): (2) Hypertensive emergency: (3) Hyperosmolar hyperglycemic state (HHS): (4) DM2 (diabetes mellitus, type 2): QUALIFIERS: Diabetes mellitus dedicated intermodal truck driver insulin use: with dedicated intermodal truck driver use Diabetes mellitus complication status: with hyperosmolarity Diabetes mellitus complication detail: without coma Qualified Code(s): E11.00 - Type 2 diabetes mellitus with hyperosmolarity without nonketotic hyperglycemic-hyperosmolar coma (N[facility]HC); Z79.4 - residential (current) use of insulin (5) Essential (primary) hypertension: (6) Hypomagnesemia: (7) CKD (chronic kidney disease) stage 3, GFR 30-59 ml/min: PLAN: RECOMMENDATIONS: 1. Will add Norvasc therapy 2. Consider cardiology consult for LVH and aortic stenosis 3. Decrease Lantus therapy 4. Diabetic teaching 5. Okay to leave the intensive care unit from my perspective IMPRESSIONS: 1. Hypertensive emergency with concerns for PRES Patient with intermittent confusion and significantly elevated blood pressures. Will need to verify home medications, but patient is acting like she is has an element of rebound hypertension. Patient still with slightly elevated blood pressures despite multiple antihypertensives. Patient does appear to have diastolic dysfunction secondary to uncontrolled hypertension. Patient may benefit from a cardiology consult given aortic stenosis and LVH. Will add Norvasc therapy. 2. Hyperosmolar nonketotic state secondary to uncontrolled diabetes mellitus Clinical suspicion for noncompliance leading to elevated blood sugars. Patient appears to be well controlled at this time. Patient does not have any signs or symptoms of sepsis/infection leading to uncontrolled blood sugars. Patient with hypoglycemia this morning. This is likely secondary to improved p.o. diet while in the hospital. Will decrease Lantus therapy. 3. Chronic kidney disease stage IIIb Patient did present in 2019 with a GFR of around 30. Patient's current renal function appears to be about that level. No indication for renal replacement therapy. Patient does have multiple comorbidities such as diabetes and hypertension that can lead to progression of renal disease. This can likely be followed up as an outpatient. 4. Previous TIA/poor history/hypomagnesemia Complicates care, management, recovery and prognosis. Patient appears to be at risk for PRES and this is a mimicker of TIA. Visit Charges Inpatient E&M: 30096 Subs Hosp L3
[2020-12-07 08:05] LABS: Bedside Glucose 99 mg/dL (70-110)
[2020-12-07] MEDS: Lisinopril 20 MG Tablet PO (08:49)
[2020-12-07] MEDS: Clopidogrel Bisulfate 75 MG Tablet PO (08:49)
[2020-12-07] MEDS: Aspirin E.C. 81 MG Tablet PO (08:49)
[2020-12-07] MEDS: hydroCHLOROthiazide 25 MG Tablet PO (08:50)
[2020-12-07] MEDS: Atenolol 100 MG Tablet PO (08:50)
[2020-12-07] MEDS: amLODIPine 5 MG Tablet PO (08:50)
[2020-12-07] MEDS: Heparin Injection (Vial) 5,000 UNIT/ML VIAL 5000 UNIT SC ×2 (08:50→21:29)
[2020-12-07] MEDS: Insulin Lispro 100 UNIT/ML INSULN.PEN SC ×3 (12:18→21:30)
[2020-12-07 12:30] LABS: Bedside Glucose 259 mg/dL (70-110)
--- NOTE | 2020-12-07 13:03 | PCM.PN.HOSP ---
Subjective Subjective Feels well. States that she is complaint with her medication. States that she takes basal insulin BID, 30 in AM, 33 PM. Blood sugars vary from 200s to up to 300s at home. States that she is compliant with her BP meds. Objective Data Objective Data Vital Signs: Vital Signs Temp Pulse Resp BP Pulse Ox 36.7 C 73 16 179/93 H 98 12/07/20 12:25 12/07/20 12:25 12/07/20 12:25 12/07/20 12:25 12/07/20 12:25 Oxygen Delivery Method Room Air Weight: 62.6 kg Body Mass Index (BMI) 22.4 Intake & Output: Intake and Output for Last 24 Hours 12/05/20 12/06/20 12/07/20 23:59 23:59 23:59 Intake Total 75 / 75 1074 / 1099 145 / 145 Output Total 150 / 150 Balance 75 / 75 924 / 949 145 / 145 Lab / Micro Data Result Diagrams: 12/06/20 04:10 12/07/20 04:50 Labs: Laboratory Results - last 24 hr 12/06/20 12/06/20 12/07/20 15:54 23:24 04:50 Sodium 140 Potassium 3.7 Chloride 107 Carbon Dioxide 28.0 Anion Gap 5 BUN 22 H Creatinine 1.51 H Estim Creat Clear Calc 27.35 Est GFR (MDRD) Af Amer 43 L Est GFR (MDRD) Non-Af 35 L BUN/Creatinine Ratio 14.6 Glucose 65 L Calcium 8.3 L POC Glucose 356 H 214 H 12/07/20 12/07/20 08:03 12:15 Sodium Potassium Chloride Carbon Dioxide Anion Gap BUN Creatinine Estim Creat Clear Calc Est GFR (MDRD) Af Amer Est GFR (MDRD) Non-Af BUN/Creatinine Ratio Glucose Calcium POC Glucose 99 259 H Radiography Diagnostic Testing: Radiology Impression Echocardiogram 12/05/20 22:12 Interpretation Summary Normal LV size. Left ventricular systolic function is normal. Mild segmental systolic dysfunction (see wall motion). Segmental dysfunction with preserved ejection fraction (see wall motion). Stage 3 diastolic dysfunction. Moderate concentric left ventricular hypertrophy. Moderate aortic stenosis. The left atrium is moderately enlarged. Ordering Physician: Gunnar Carrasquillo Referring Physician: Ervin Beck Performed By: Agustin Wright RCS Physical Exam Const alert Constitutional Narrative: does not know date Exam Limitations: no limitations Eyes PERRL Resp normal respiratory effort Cardio regular rate, regular rhythm, S1 normal heart sound and S2 normal heart sound GI normal to inspection, nondistended, normoactive bowel sounds, non-tender and non-distended Psych affect normal Assessment & Plan Assessment/Plan (1) Hypertensive emergency: (2) Hyperosmolar hyperglycemic state (HHS): (3) Essential (primary) hypertension: (4) DM2 (diabetes mellitus, type 2): QUALIFIERS: Diabetes mellitus salvage determiner insulin use: with salvage determiner use Diabetes mellitus complication status: with hyperosmolarity Diabetes mellitus complication detail: without coma Qualified Code(s): E11.00 - Type 2 diabetes mellitus with hyperosmolarity without nonketotic hyperglycemic-hyperosmolar coma (NKHHC); Z79.4 - termite control service representative (current) use of insulin (5) Hypomagnesemia: PLAN: Hypertensive emergency resolved Systolic blood pressure is in the 220s. Will decrease blood pressure in the first 24 hours with a goal of keeping blood pressure between 165 to 180. Labetalol as needed ordered. Resume Home blood pressure medication as soon as verified. On atenolol, lisinopril and HCTZ HHS resolved a1c 10.5 on Glargine 30 units and SSI Hypomagnesemia Replaced DVT Prophylaxis: Subcutaneous heparin ordered. Dispostion: TF to PCU. Anticipate dc in 1-2 days. I am concerned about compliance. Give her confusion, I would like to observe another day in the hospital with her medication. If stable, if she can administer insulin properly, then likely discharge 12/08. Visit Charges Inpatient E&M: 74039 Subs Hosp L2
[2020-12-07 16:35] LABS: Bedside Glucose 175 mg/dL (70-110)
[2020-12-07] MEDS: Pravastatin 20 MG Tablet PO (21:29)
[2020-12-07 21:41] LABS: Bedside Glucose 215 mg/dL (70-110)
[2020-12-08] VITALS (8 sets, daily range): BP systolic 145–168; BP diastolic 61–90; PULSE 53–85; RESP 16–20; TEMP 36.2–36.8; O2SAT 96–100
[2020-12-08] MEDS: Atenolol 100 MG Tablet PO (08:52)
[2020-12-08] MEDS: Clopidogrel Bisulfate 75 MG Tablet PO (08:52)
[2020-12-08] MEDS: hydroCHLOROthiazide 25 MG Tablet PO (08:52)
[2020-12-08] MEDS: amLODIPine 5 MG Tablet PO (08:52)
[2020-12-08] MEDS: Aspirin E.C. 81 MG Tablet PO (08:52)
[2020-12-08] MEDS: Lisinopril 20 MG Tablet PO (08:53)
[2020-12-08] MEDS: Heparin Injection (Vial) 5,000 UNIT/ML VIAL 5000 UNIT SC (08:54)
[2020-12-08 09:31] LABS: Bedside Glucose 86 mg/dL (70-110)
--- NOTE | 2020-12-08 09:39 | PCM.DC ---
Discharge Instructions Diet Discharge Diet: 1800 Calorie Control Diet Activity Discharge Activity: Return to Normal Activity Dressing / Incision Call your doctor if you observe: Shortness of breath and - (uncontrolled blood sugar (1 time greater than 400, or peristantly above 300)) Follow Up Care Test Results: Test results from this visit will be discussed in further detail at your follow-up appointment, if applicable. Discharge Plan Admission Admit Date/Time: 12/05/20 22:12 Attending Provider: Nathaniel Pederson Primary Care Provider: Ervin Beck Discharge Orders/Prescriptions Prescriptions: New amlodipine 5 mg Tablet 5 mg PO DAILY Qty: 30 RF: 0 Continued atenolol 100 MG tablet 100 mg PO DAILY RF: 0 enalapril maleate 20 MG tablet 20 mg PO DAILY RF: 0 allopurinol 300 MG tablet 300 mg PO DAILY RF: 0 pravastatin 20 MG tablet 20 mg PO DAILY RF: 0 hydrochlorothiazide 25 MG tablet 25 mg PO DAILY RF: 0 dulaglutide 1.5 MG/0.5 ML pen injector 1.5 mg SQ [place] RF: 0 aspirin 81 MG tablet,delayed release (DR/EC) 81 mg PO DAILY RF: 0 clopidogrel 75 MG tablet 75 mg PO DAILY RF: 0 Changed insulin glargine 100 UNIT/ML solution 33 unit SQ BID Qty: 0 RF: 0 Referrals / Follow Up: Ervin Beck DO [Primary Care Provider] - Within 1 Week Disposition Disposition (needs filled in before D/C Order can be placed): Home, self care
--- NOTE | 2020-12-08 09:43 | DS.PCM_ITS ---
Providers Date of Admission: 12/05/20 Primary Care Physician: Dr. Ervin Beck, Reason For Visit: HHS, HYPERTENSIVE EMERGENCY Diagnosis Discharge Diagnosis (1) Hypertensive emergency: Status: Acute Code(s): I16.1 - Hypertensive emergency (2) Hyperosmolar hyperglycemic state (HHS): Status: Acute Code(s): E11.00 - Type 2 diabetes mellitus with hyperosmolarity without nonketotic hyperglycemic-hyperosmolar coma (NKHHC); E11.65 - Type 2 diabetes mellitus with hyperglycemia (3) Essential (primary) hypertension: Status: Chronic Code(s): I10 - Essential (primary) hypertension (4) DM2 (diabetes mellitus, type 2): Status: Chronic Code(s): E11.9 - Type 2 diabetes mellitus without complications Qualifiers: Diabetes mellitus vocational nursing instructor insulin use: with residential use Diabetes mellitus complication status: with hyperosmolarity Diabetes mellitus complication detail: without coma Qualified Code(s): E11.00 - Type 2 diabetes mellitus with hyperosmolarity without nonketotic hyperglycemic-hyperosmolar coma (NKHHC); Z79.4 - shelter (current) use of insulin (5) Hypomagnesemia: Status: Acute Code(s): E83.42 - Hypomagnesemia Medications at Discharge Home Medications allopurinol 300 mg PO DAILY 06/15/19 aspirin 81 mg PO DAILY 06/15/19 atenolol 100 mg PO DAILY 06/15/19 dulaglutide 1.5 mg SQ SAN[place]ORD 06/15/19 enalapril maleate 20 mg PO DAILY 06/15/19 hydrochlorothiazide 25 mg PO DAILY 06/15/19 pravastatin 20 mg PO DAILY 06/15/19 clopidogrel 75 mg PO DAILY 12/05/20 amlodipine 5 mg PO DAILY #30 tab 12/08/20 insulin glargine 33 unit SQ BID #0 ml 12/08/20 Hospital Course Operations None Procedures 2-D Echocardiogram Summary of Care Provided Minutes Spent on Discharge: 32 Hospital Course: Patient presents to outside hospital with lightheadedness at restaurant. Patient was noted to be confused but confusion did resolve by the time of her arrival. Patient was noted to have hyperglycemia of 664. Patient was started on insulin drip due to concern for HHS. Patient was blood sugar overall improved. Patient was never in DKA. Blood pressure has overall improved as well. Patient is already on medication for blood pressure at home b ut amlodipine was added and blood pressure has improved. Patient to continue with the current blood pressure regimen and follow-up with primary care doctor to see if any adjustments would be necessary. Patient had on her medication reconciliation form that she is on 50 units of insulin glargine twice daily. Patient did have blood sugar dropped down to about 100 concern was that dose may be more than what she is taking. Upon further inquiry, patient states that she takes 30 in the morning and 30 3 at night. Patient is already on dulaglutide which she will continue. Patient states that she is compliant with her medications and checks her blood sugar daily but does note that her blood sugar ranges from the 200s 300s. This may need to be adjusted further on outpatient basis but with the help of her primary care provider and if necessary an export sales assistant. Additionally, I clarified that the patient does not have issues seeing the numbers on her insulin or the needle when she draws it up. States that she is effectively able to check her blood sugars and read the numbers from a glucometer. Echocardiogram did show moderate aortic stenosis. Patient may follow-up with cardiology for further recommendations as outpatient. Physical Exam Const alert and oriented x3 General Appearance: cooperative and comfortable Resp normal respiratory effort and clear to auscultation bilaterally Cardio regular rate, regular rhythm, S1 normal heart sound and S2 normal heart sound Neuro Sensorium / Orientation: awake and alert Psych affect normal ABG / Lab / Microbiology Data Result Diagrams: 12/06/20 04:10 12/07/20 04:50 Laboratory: Laboratory Results - last 24 hr 12/07/20 12/07/20 12/07/20 12:15 16:19 21:29 POC Glucose 259 H 175 H 215 H 12/08/20 08:48 POC Glucose 86 D/C Instructions Discharge Diet: 1800 Calorie Control Diet Discharge Activity: Return to Normal Activity Call your doctor if you observe: Shortness of breath and - (uncontrolled blood sugar (1 time greater than 400, or peristantly above 300)) Meaningful Use Info Meaningful Use Diagnoses (Choose all that apply): None applicable Discharge Plan Admission Admit Date/Time: 12/05/20 22:12 Attending Provider: Nathaniel Pederson Primary Care Provider: Ervin Beck Discharge Orders/Prescriptions Prescriptions: New amlodipine 5 mg Tablet 5 mg PO DAILY Qty: 30 RF: 0 Continued atenolol 100 MG tablet 100 mg PO DAILY RF: 0 enalapril maleate 20 MG tablet 20 mg PO DAILY RF: 0 allopurinol 300 MG tablet 300 mg PO DAILY RF: 0 pravastatin 20 MG tablet 20 mg PO DAILY RF: 0 hydrochlorothiazide 25 MG tablet 25 mg PO DAILY RF: 0 dulaglutide 1.5 MG/0.5 ML pen injector 1.5 mg SQ [place] RF: 0 aspirin 81 MG tablet,delayed release (DR/EC) 81 mg PO DAILY RF: 0 clopidogrel 75 MG tablet 75 mg PO DAILY RF: 0 Changed insulin glargine 100 UNIT/ML solution 33 unit SQ BID Qty: 0 RF: 0 Referrals / Follow Up: Ervin Beck DO [Primary Care Provider] - Within 1 Week Contreras Schwartz MD [STAFF PHYSICIAN] - Within 1 Month (or other greeting card writer for aortic stenosis.) Disposition Disposition (needs filled in before D/C Order can be placed): Home, self care Visit Charges Inpatient E&M: 63837 Disch Hosp
--- NOTE | 2020-12-08 10:17 | CASEMGMT ---
CLARENCE MARES NOTE: PT/OT evals have been reviewed. Additional therapy recommended. Pt made aware and discussed options of HHC and OP therapy with pt. Discussed requirements of being homebound for insurance to cover HHC. Pt states she is not homebound, stating it is not difficult for her to get in/out of a car to go places. She states she is not interested in OP therapy. Pt was made aware, if in the future, she is interested in OP therapy, or if she would become homebound, to discuss options of either HHC or OP therapy with her PCP or with CCN. She voices understanding. Victorino LANDIS RN CM
[2020-12-08] MEDS: Insulin Lispro 100 UNIT/ML INSULN.PEN SC (12:41)
[2020-12-08 12:50] LABS: Bedside Glucose 256 mg/dL (70-110)
== END 2020-12-08 16:39 | disposition home or self-care (01) | DRG 637 ==
PROVIDERS: Admitting Provider Hospitalist; PCP Student in an Organized Health Care Education/Training Program
DX: E11.00 Type 2 diabetes mellitus with hyperosmolarity without nonketotic hyperglycemic-hyperosmolar coma (NKHHC) (principal); I67.83 Posterior reversible encephalopathy syndrome; I16.1 Hypertensive emergency; E11.22 Type 2 diabetes mellitus with diabetic chronic kidney disease; I12.9 Hypertensive chronic kidney disease with stage 1 through stage 4 chronic kidney disease, or unspecified chronic kidney disease; N18.32 Chronic kidney disease, stage 3b; E11.649 Type 2 diabetes mellitus with hypoglycemia without coma; Z79.899 Other long term (current) drug therapy; Z79.82 Long term (current) use of aspirin; Z79.02 Long term (current) use of antithrombotics/antiplatelets; Z79.4 Long term (current) use of insulin; Z86.73 Personal history of transient ischemic attack (TIA), and cerebral infarction without residual deficits
CPT/HCPCS: 80048; 82962; 83036; 83735; 83930; 84100; 85025; 93005; 93306; 97162; 97167; 97802; J7030; A4216

== ENCOUNTER 2021-07-17 01:58 | Inpatient (IN) | payer MEDICARE, OTHER, SELFPAY ==
[2021-07-17] VITALS (10 sets, daily range): BP systolic 102–144; BP diastolic 48–96; PULSE 66–96; RESP 15–26; TEMP 36.3–37.1; O2SAT 84–100; BMI 24.1; BMI 23.0
--- NOTE | 2021-07-17 02:12 | CT_ITS ---
EXAM: CT HEAD WITHOUT INTRAVENOUS CONTRAST CLINICAL INDICATION: trauma TECHNIQUE: Multiple axial images were obtained of the head without intravenous contrast. CTDIvol = ( 44.99 ) mGy, DLP = ( 762.36 ) mGycm This CT exam was performed using one or more of the following dose reduction techniques: automated exposure control, adjustment of the mA and/or kV according to patient size, and/or use of iterative reconstruction technique. This report was created using [employer] report generation technology. COMPARISON: None. FINDINGS: BRAIN AND EXTRA-AXIAL SPACES: No acute intracranial hemorrhage, mass effect or edema. No evidence of acute cortical stroke. Periventricular small vessel ischemic change. No midline shift or hydrocephalus. Diffuse parenchymal atrophy. Posterior fossa structures are unremarkable. Basal cisterns are patent. 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 BONES/JOINTS: Unremarkable. No discrete lytic or blastic abnormalities. VASCULATURE: Atherosclerotic calcifications of the carotid siphons and vertebrobasilar arteries. SINUSES: Unremarkable as visualized. Clear. MASTOID AIR CELLS: Visualized sinuses and mastoid air cells are clear. ORBITS: Visualized globes, extraocular muscles, optic nerves and retrobulbar fat appear unremarkable. Scalp hematoma along the left vertex. CT/Brain/Head without Contrast IMPRESSION: 1. No evidence of acute intracranial pathology. 2. Diffuse involutional changes and chronic ischemic small vessel white matter disease. Electronically Signed: Didier Oliver MD at 3:22 EST Tel , Service support ,
--- NOTE | 2021-07-17 02:16 | EDS_ITS ---
HPI History of Present Illness Chief Complaint: Fall Informant: patient and EMS Narrative Narrative: History is limited and variable. Patient denies having Covid yet we have reports from EMS that she was diagnosed with Covid recently. She is also on 4 L of oxygen which is apparently new. Patient also denies any medical problems or surgeries to me. However, review of the chart shows that this is not accurate. She had also just told the nurse moments before that she did have diabetes and blood pressure. She did not and does not know her meds. My overall understanding with limited information is that she has had multiple falls and progressive weakness at home. She has not heard herself in these falls. I have no indication that she passed out. It sounds like she has been too weak to really get out of bed. I do note that on her med list Plavix is l isted. Further history and details are really not obtainable. [facility] Medical History DM2 (diabetes mellitus, type 2) Essential (primary) hypertension Facial paresthesia TIA (transient ischemic attack) Home Medications allopurinol 300 mg PO DAILY 06/15/19 [History Last Taken 06/15/19] aspirin 81 mg PO DAILY 06/15/19 [History Last Taken 06/15/19] atenolol 100 mg PO DAILY 06/15/19 [History Last Taken 06/15/19] dulaglutide 1.5 mg SQ [place]ORD 06/15/19 [History Last Taken 06/13/19] enalapril maleate 20 mg PO DAILY 06/15/19 [History Last Taken 06/15/19] hydrochlorothiazide 25 mg PO DAILY 06/15/19 [History Last Taken 06/15/19] pravastatin 20 mg PO DAILY 06/15/19 [History Last Taken 06/14/19] clopidogrel 75 mg PO DAILY 12/05/20 [History Last Taken Unknown] amlodipine 5 mg PO DAILY #30 tab 12/08/20 [Rx Last Taken Unknown] insulin glargine 33 unit SQ BID #0 ml 12/08/20 [Rx Last Taken 06/15/19] Allergy/AdvReac Type Severity Reaction Status Date / Time No Known Allergies Allergy Verified 07/17/21 02:03 Family History Other Hypertension Surgical History History of appendectomy History of cholecystectomy Social History Smoking Status: Never smoker ROS ROS ED ROS Narrative Patient denies all complaints. But I question the accuracy of this. She also denied any medical illness or taking any medications when I asked her. However, minutes before that she had told the nurse that she had diabetes and high blood pressure but could not remember her medications. My understanding is that she has already been seen and diagnosed with Covid. She is on 4 L of oxygen that is new. Therefore I would expect some of her review of systems to have positive answers but she denies them all at this time. I think this is likely due to some confusion. I do not know how much of this is acute versus chronic though. 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 However I have no report of seizures or headache. Constitutional Constitutional ED: Denies chills or fever(s) Eyes Eyes: Denies blurry vision ENT ENT ED: Denies sore throat Cardiovascular Cardiovascular: Denies chest pain Respiratory/Chest Respiratory/Chest: Reports cough; Denies dyspnea Gastrointestinal Gastrointestinal: Denies diarrhea, nausea or vomiting Genitourinary Genitourinary ED: Denies dysuria Musculoskeletal Musculoskeletal: Denies back pain or neck pain Integumentary Denies rash Neurologic Neurologic: Denies headache(s) Endocrine Endocrinology: Denies polydipsia or polyuria Allergic/Immunologic Allergic/Immunologic ED: Denies mouth swelling EXAM Physical Exam Const Vital Signs: 07/17/21 01:59 07/17/21 03:42 Temperature 98.7 F Temperature Source Temporal Pulse Rate 68 Respiratory Rate 22 H Respiratory Pattern Normal Blood Pressure 121/96 H Blood Pressure Mean 104 Pulse Ox 84 Oxygen Delivery Method Room Air Patient is thin and looks a little bit tired. However she is not toxic. She is not an extremis. Positive well nourished General Appearance ED: NAD; Negative for cyanotic, diaphoretic or pallor HEENT Reports dry mucous membranes HEENT Narrative: Mildly dry mucous membranes. I do not see external signs of significant trauma. It looks like her hair has not been washed in a while but it is not dirty. Mouth ED: Yes dry mucous membranes Mouth: dry mucous membranes Eyes General Eye ED: Negative for pale conjunctiva or scleral icterus Neck supple and no JVD Neck Narrative: No cervical spine tenderness. General: Negative for tenderness Chest Wall inspection of chest normal Resp normal respiratory effort Resp Narrative: Mild coarse breath sounds bilaterally. Effort and Inspection: Negative for pain with movement Auscultation: rhonchi; Negative for rales or wheezes Cardio regular rate and regular rhythm; Negative for no murmurs Rate: other Other Details: Prominent 3 out of 6 systolic murmur throughout the precordium. GI normal to inspection, nondistended, normoactive bowel sounds and non-tender GI Narrative: Signs of prior surgery including traditional cholecystectomy scar. Overall benign on exam though. Palpation: soft Back/Spine no CVA tenderness Back/Spine Narrative: I see no sign of back contusions or abrasions. Extremity normal to inspection Extremity Narrative: There is some dried stool on lower extremities but I see no sign of acute trauma. General Extremety ED: Negative for edema or tenderness General Extremity: Negative for edema Neuro Neuro Narrative: Patient is awake and alert. She is oriented to person and place. She could not tell me the year. She did know the president of [employer]. Sensorium / Orientation: alert Motor Exam: general weakness Psych mental status grossly normal Skin no rashes or lesions noted and no wounds General Skin Exam: Negative for jaundice or pallor MDM MDM MDM Narrative Medical decision making narrative: Patient CBC shows minimal anemia at 11.9. Electrolytes do show some mild kidney injury with creatinine up from about 1.5- 2.1. Lactic acid is normal. Liver function tests show no marked abnormalities. Magnesium was checked as she has a history of hypomagnesemia. This was normal. Troponin was also normal. Chest x-ray shows bilateral multilobar pneumonia consistent with Covid. CT of the head and x-ray of the pelvis are not showing acute changes. We have had trouble getting her O2 sats to read with a good waveform. We did get about 84% on room air. I generally see 90 to 91% on 3 L. Occasionally we have gotten 97% on 3 L with a decent waveform. However, we have tried multiple techniques and machines and the results are variable. However, I did do not believe that she is hypoxic on the 3 L. She does certainly have some component of respiratory failure with hypoxia. We did try to walk the patient. She is far too weak to walk. My understanding is that she does walk around at home. We were able to get her up on the edge of the bed but she just started sliding off and needed help to avoid falling. My understanding is that she lives with a gentleman at home. I have not been able to talk to him. But he called due to her weakness. I do not think she is going to be a good candidate to go home. I also do not know for sure when she started with symptoms. Per EMS she had a home Covid test within the last 1 to 2 days. Therefore my suspicion is that this is relatively recent symptoms. But she cannot tell me this. She even denied having Covid to me. She also denied falling. I have hospitalist on page at this time. Lab Data Attestation: I reviewed the patient's lab results. Labs: Laboratory Results - last 24 hr 07/17/21 07/17/21 07/17/21 02:25 02:25 02:25 WBC 7.6 RBC 4.00 L Hgb 11.9 L Hct 36.2 L MCV 90.5 MCH 29.8 MCHC 32.9 RDW Std Deviation 43.3 RDW Coeff of Meagan 13.2 Plt Count 154 MPV 9.7 Immature Gran % (Auto) 0.800 Neut % (Auto) 74.7 H Lymph % (Auto) 9.5 L [place] % (Auto) 14.4 H Eos % (Auto) 0.3 Baso % (Auto) 0.3 Absolute Neuts (auto) 5.7 Absolute Lymphs (auto) 0.72 L Nucleated RBC % 0 Sodium 134 L Potassium 3.8 Chloride 98 Carbon Dioxide 27.0 Anion Gap 9 BUN 47 H Creatinine 2.13 H Estim Creat Clear Calc 18.32 Est GFR (MDRD) Af Amer 29 L Est GFR (MDRD) Non-Af 24 L BUN/Creatinine Ratio 22.1 H Glucose 143 H Lactic Acid 1.9 Calcium 8.2 L Magnesium 1.7 Total Bilirubin 0.60 AST 23 ALT 22 Alkaline Phosphatase 59 Troponin I High Sens 37 Total Protein 6.5 Albumin 2.5 L Globulin 4.0 Albumin/Globulin Ratio 0.6 L Urine Color Urine Clarity Urine pH Ur Specific [place] Urine Protein Urine Glucose (UA) Urine Ketones Urine Occult Blood Urine Nitrite Urine Bilirubin Urine Urobilinogen Ur Leukocyte Esterase Urine RBC Urine WBC Ur Squamous Epith Cells Ur Transition Epith Cell Amorphous Sediment Urine Bacteria Urine Mucus 07/17/21 03:46 WBC RBC Hgb Hct MCV MCH MCHC RDW Std Deviation RDW Coeff of Meagan Plt Count MPV Immature Gran % (Auto) Neut % (Auto) Lymph % (Auto) [place] % (Auto) Eos % (Auto) Baso % (Auto) Absolute Neuts (auto) Absolute Lymphs (auto) Nucleated RBC % Sodium Potassium Chloride Carbon Dioxide Anion Gap BUN Creatinine Estim Creat Clear Calc Est GFR (MDRD) Af Amer Est GFR (MDRD) Non-Af BUN/Creatinine Ratio Glucose Lactic Acid Calcium Magnesium Total Bilirubin AST ALT Alkaline Phosphatase Troponin I High Sens Total Protein Albumin Globulin Albumin/Globulin Ratio Urine Color Yellow Urine Clarity Clear Urine pH 5.0 Ur Specific [place] 1.025 Urine Protein 100 H Urine Glucose (UA) Normal Urine Ketones Negative Urine Occult Blood 50 H Urine Nitrite Negative Urine Bilirubin Negative Urine Urobilinogen Normal Ur Leukocyte Esterase 100 H Urine RBC 0-5 SEEN Urine WBC 10-25 SEEN Ur Squamous Epith Cells 0-5 SEEN Ur Transition Epith Cell 0-5 SEEN Amorphous Sediment 2+ Urine Bacteria 3+ Urine Mucus 0 SEEN Radiography Diagnostic Testing: Clinical Impression(s) from Imaging Studies Brain CT 07/17/21 02:12 IMPRESSION: 1. No evidence of acute intracranial pathology. 2. Diffuse involutional changes and chronic ischemic small vessel white matter disease. Electronically Signed: Didier Oliver MD at 3:22 EST Tel , Service support , Chest X-Ray 07/17/21 02:47 IMPRESSION: Bilateral multilobar pneumonia. Electronically Signed: Didier Oliver MD at 3:12 EST Tel , Service support , Pelvis X-Ray 07/17/21 02:47 IMPRESSION: No acute or healing fracture or malalignment. Electronically Signed: Didier Oliver MD at 3:11 EST Tel , Service support , Discharge Plan Dx/Rx/DC Orders Clinical Impression: COVID, Multiple falls, Unable to stand up, Acute respiratory failure with hypoxia Disposition Disposition: Acute Care Hospital [facility]
[2021-07-17 02:35] LABS: Absolute Lymphocyte Count 0.72 X10^3/uL (0.83-4.51); Absolute Neutrophil Count 5.7 X10^3/uL (2.0-7.7); Basophil# 0.02 X10^3/uL; Basophil% 0.3 % (0-1); Eosinophil# 0.02 X10^3/uL; Eosinophils% 0.3 % (0-5); Hematocrit 36.2 % (37-47); Hemoglobin 11.9 g/dL (12.0-15.0); Lymphocyte # 0.72 X10^3/ul (0.83-4.51); Lymphocyte % 9.5 % (19-41); Mean Corp Hgb Conc 32.9 g/dL (32-36); Mean Corpuscular Hgb 29.8 pg (27.0-32.0); Mean Corpuscular Volume 90.5 fL (81-99); Mean Platelet Vol. 9.7 fl (6.2-12.0); Monocyte# 1.09 X10^3/uL; Monocyte% 14.4 % (0-10); NRBC Flagged by Analyzer 0 % (0-5); Neutrophil # 5.67 X10^3/uL (2.7-7.7); Neutrophil % 74.7 % (47-70); Platelet Count 154 K/mm3 (150-450); RBC Distribution Width CV 13.2 % (11.6-14.6); RBC Distribution Width SD 43.3 fl (35.1-43.9); White Blood Count 7.6 K/mm3 (4.4-11.0)
--- NOTE | 2021-07-17 02:47 | RAD_ITS ---
EXAM: XR CHEST, 1 VIEW CLINICAL INDICATION: cough TECHNIQUE: Frontal view of the chest. This report was created using [employer] report generation technology. COMPARISON: 07/25/2020 chest x-ray FINDINGS: LUNGS AND PLEURAL SPACES: Bilateral multilobar infiltrates. No pneumothorax. No effusion. HEART: Unremarkable. Cardiac silhouette not enlarged. MEDIASTINUM: Central airways and mediastinal contour are unremarkable. BONES/JOINTS: Degenerative changes of the acromioclavicular joints and spine. SOFT TISSUES: Unremarkable. VASCULATURE: Atherosclerotic calcifications of the nonenlarged thoracic arch. RAD/Chest 1 View (Portable) IMPRESSION: Bilateral multilobar pneumonia. Electronically Signed: Didier Oliver MD at 3:12 EST Tel , Service support ,
--- NOTE | 2021-07-17 02:47 | RAD_ITS ---
EXAM: XR PELVIS, 1 OR 2 VIEWS CLINICAL INDICATION: fall TECHNIQUE: Frontal view of the pelvis. This report was created using [facility] report generation technology. COMPARISON: None. FINDINGS: BONES/JOINTS: No acute fracture or malalignment. No acute or healing fracture or malalignment. No unusual lytic or sclerotic lesions of bone. Sacroiliac joints are unremarkable. No widening of the pubic symphysis. The articular structures are unremarkable. SOFT TISSUES: Remaining soft tissues are unremarkable. VASCULATURE: Multiple phleboliths in the left pelvis. Peripheral vascular disease involving the groin and proximal thighs. RAD/Pelvis 1 or 2 Views IMPRESSION: No acute or healing fracture or malalignment. Electronically Signed: Didier Oliver MD at 3:11 EST Tel , Service support ,
[2021-07-17 03:02] LABS: Lactic Acid 1.9 mmol/L (0.4-1.9)
[2021-07-17 03:05] LABS: ALB/GLOB Ratio 0.6 RATIO (0.9-2.4); AST(SGOT) 23 U/L (15-37); Alanine Aminotransfer ALT/SGPT 22 U/L (13-56); Albumin, Serum 2.5 g/dL (3.2-5.0); Alkaline Phosphatase 59 U/L (45-117); Anion Gap 9 (5-15); BUN 47 mg/dL (7-18); BUN/Creat Ratio 22.1 RATIO (10-20); Calcium,Total 8.2 mg/dL (8.5-10.1); Chloride 98 mmol/L (98-107); Creatinine, Serum 2.13 mg/dL (0.55-1.02); EST Glomerular Filtration Rate 24 mL/min (>60); Est Glom Filt Rate - Afr Amer 29 mL/min (>60); Estimated Creatinine Clearance 18.32 ml/min; Glucose 143 mg/dL (74-106); Magnesium 1.7 mg/dL (1.6-2.6); Potassium 3.8 mmol/L (3.5-5.1); Protein, Total 6.5 g/dL (6.4-8.2); Sodium Level 134 mmol/L (136-145); Troponin-I HS 37 pg/mL (3.0-54.0)
[2021-07-17 03:48] LABS: Color, Urine Yellow (Yellow); Glucose, Dipstick Normal (Normal); Ketone-Dipstick Negative (Negative); Leukocyte Esterase-Dipstick 100 /ul (Negative); Mucous, Urine 0 SEEN /hpf (<or=2+); Nitrite-Dipstick Negative (Negative); Occult Blood-Urine 50 /ul (Negative); Protein-Dipstick 100 mg/dl (Negative); Specific Gravity, Urine 1.025 (1.002-1.030); Urine Bilirubin Dipstick Negative (Negative); Urine Clarity Clear (Clear); Urine Urobilinogen Normal (Normal)
--- NOTE | 2021-07-17 03:53 | ED.RN ---
PT PLACED FEET ON THE FLOOR AND BEGAN TO SLIDE TOWARDS THE FLOOR. THIS RN ASSISTED PT TO STAND UPRIGHT AND PT BEGAN TO FALL FORWARD AND STATED SHE NEEDED TO SIT BACK DOWN IN BED. MADE AWARE OF TEST.
[2021-07-17 03:58] LABS: White Blood Cells 10-25 SEEN /hpf (0-5)
[2021-07-17 03:59] LABS: Amorphous Sediment 2+; Bacteria 3+ /hpf (None Seen); Red Blood Cells-Urine 0-5 SEEN /hpf (0-5); Squamous Epithelial Cells - UA 0-5 SEEN /hpf (5-10); Transitional Epithelial - Ur 0-5 SEEN /hpf (0-5)
--- NOTE | 2021-07-17 04:17 | PCM.HP.STD ---
HPI - General HPI Narrative HEMANT TOM, is a 81 F who presents to the emergency room by squad due to weakness. The patient is a poor historian and is confused. Per the report of EMS the patient was hypoxic upon arrival and had self-reported to be Covid positive and required 4 L of oxygen to get her pulse ox saturation above 90%. Currently the patient is unable to stand on her own and maintain posture. The patient denies any chest pain at present time although she is not necessarily reliable as a historian. Covid test was positive and her start date of symptoms is unknown. She will be admitted to the general medical floor for COVID-19 management. [facility] Medical History DM2 (diabetes mellitus, type 2) Essential (primary) hypertension Facial paresthesia TIA (transient ischemic attack) Home Medications allopurinol 300 mg PO DAILY 06/15/19 [History Last Taken 06/15/19] aspirin 81 mg PO DAILY 06/15/19 [History Last Taken 06/15/19] atenolol 100 mg PO DAILY 06/15/19 [History Last Taken 06/15/19] dulaglutide 1.5 mg SQ [place] 06/15/19 [History Last Taken 06/13/19] enalapril maleate 20 mg PO DAILY 06/15/19 [History Last Taken 06/15/19] hydrochlorothiazide 25 mg PO DAILY 06/15/19 [History Last Taken 06/15/19] pravastatin 20 mg PO DAILY 06/15/19 [History Last Taken 06/14/19] clopidogrel 75 mg PO DAILY 12/05/20 [History Last Taken Unknown] amlodipine 5 mg PO DAILY #30 tab 12/08/20 [Rx Last Taken Unknown] insulin glargine 33 unit SQ BID #0 ml 12/08/20 [Rx Last Taken 06/15/19] Allergy/AdvReac Type Severity Reaction Status Date / Time No Known Allergies Allergy Verified 07/17/21 02:03 Family History Other Hypertension Surgical History History of appendectomy History of cholecystectomy Social History Smoking Status: Never smoker ROS Review of Systems ROS Unobtainable: due to mental status Vital Signs Vital Signs Vital Signs: 07/17/21 01:59 07/17/21 03:42 Temperature 98.7 F Temperature Source Temporal Pulse Rate 68 Respiratory Rate 22 H Respiratory Pattern Normal Blood Pressure 121/96 H Blood Pressure Mean 104 Pulse Ox 84 Oxygen Delivery Method Room Air Weight Weight: 145 lb 1.027 oz Body Mass Index (BMI) 24.1 Physical Exam Const alert Orientation / Consciousness: confused HEENT normocephalic and head/scalp atraumatic Eyes PERRL Neck supple Lymph Lymphatic: no lymphadenopathy noted Resp clear to auscultation bilaterally Auscultation: Negative for rales, rhonchi or wheezes Cardio S1 normal heart sound and S2 normal heart sound Heart Sounds: murmur systolic GI normal to inspection, nondistended, normoactive bowel sounds Extremity no clubbing, cyanosis or edema Skin General Skin Exam: turgor normal Neuro CN's II-XII intact bilaterally Psych affect normal Results Lab / Micro Data Result Diagrams: 07/17/21 02:25 07/17/21 02:25 Labs: Laboratory Results - last 24 hr 07/17/21 02:25: WBC 7.6, RBC 4.00 L, Hgb 11.9 L, Hct 36.2 L, MCV 90.5, MCH 29.8, MCHC 32.9, RDW Std Deviation 43.3, RDW Coeff of Meagan 13.2, Plt Count 154, MPV 9.7, Immature Gran % (Auto) 0.800, Neut % (Auto) 74.7 H, Lymph % (Auto) 9.5 L, [place] % (Auto) 14.4 H, Eos % (Auto) 0.3, Baso % (Auto) 0.3, Absolute Neuts (auto) 5.7, Absolute Lymphs (auto) 0.72 L, Nucleated RBC % 0 07/17/21 02:25: Sodium 134 L, Potassium 3.8, Chloride 98, Carbon Dioxide 27.0, Anion Gap 9, BUN 47 H, Creatinine 2.13 H, Estim Creat Clear Calc 18.32, Est GFR (MDRD) Af Amer 29 L, Est GFR (MDRD) Non-Af 24 L, BUN/Creatinine Ratio 22.1 H, Glucose 143 H, Calcium 8.2 L, Magnesium 1.7, Total Bilirubin 0.60, AST 23, ALT 22, Alkaline Phosphatase 59, Troponin I High Sens 37, Total Protein 6.5, Albumin 2.5 L, Globulin 4.0, Albumin/Globulin Ratio 0.6 L 07/17/21 02:25: Lactic Acid 1.9 07/17/21 03:46: Urine Color Yellow, Urine Clarity Clear, Urine pH 5.0, Ur Specific [place] 1.025, Urine Protein 100 H, Urine Glucose (UA) Normal, Urine Ketones Negative, Urine Occult Blood 50 H, Urine Nitrite Negative, Urine Bilirubin Negative, Urine Urobilinogen Normal, Ur Leukocyte Esterase 100 H, Urine RBC 0-5 SEEN, Urine WBC 10-25 SEEN, Ur Squamous Epith Cells 0-5 SEEN, Ur Transition Epith Cell 0-5 SEEN, Amorphous Sediment 2+, Urine Bacteria 3+, Urine Mucus 0 SEEN Micro: Microbiology 07/17/21 02:05 Nasal Secretion SARS-CoV-2 Antigen (Rapid) - Final SARS-CoV-2 (COVID 19) Radiology Impression Brain CT 07/17/21 02:12 IMPRESSION: 1. No evidence of acute intracranial pathology. 2. Diffuse involutional changes and chronic ischemic small vessel white matter disease. Electronically Signed: Didier Oliver MD at 3:22 EST Tel , Service support , Chest X-Ray 07/17/21 02:47 IMPRESSION: Bilateral multilobar pneumonia. Electronically Signed: Didier Oliver MD at 3:12 EST Tel , Service support , Pelvis X-Ray 07/17/21 02:47 IMPRESSION: No acute or healing fracture or malalignment. Electronically Signed: Didier Oliver MD at 3:11 EST Tel , Service support , Assessment & Plan Assessment/Plan (1) COVID: (2) Multiple falls: (3) Unable to stand up: (4) Acute respiratory failure with hypoxia: (5) DM2 (diabetes mellitus, type 2): QUALIFIERS: Diabetes mellitus fci insulin use: with watermaster use Diabetes mellitus complication status: with hyperosmolarity Diabetes mellitus complication detail: without coma Qualified Code(s): E11.00 - Type 2 diabetes mellitus with hyperosmolarity without nonketotic hyperglycemic-hyperosmolar coma (N[facility]); Z79.4 - director long term care (current) use of insulin (6) Essential (primary) hypertension: (7) PRES (posterior reversible encephalopathy syndrome): PLAN: 1. COVID-19 with hypoxia and respiratory failure?admit patient to general medical floor with continue oxygen support, start Decadron and monitor repeat CBC BMP in the morning 2. Multiple falls with inability to stand on her own?order physical therapy to evaluate and treat 3. Diabetes?continue home medications 4. Hypertension?continue routine home medications 5. 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 DVT prophylaxis?low molecular weight heparin Charges/Coding Visit Charges Inpatient E&M: 55885 Init Hosp L3
--- NOTE | 2021-07-17 05:29 | PCS.PANDOC ---
PANDEMIC DOCUMENTATION INITIATED: Date: 03/12/2021 Time: 190
[2021-07-17 07:07] LABS: D-Dimer Quantitative (DVT/PE) 1.24 FEU/ug/m (0.27-0.49)
[2021-07-17 07:26] LABS: Absolute Lymphocyte Count 0.79 X10^3/uL (0.83-4.51); Absolute Neutrophil Count 5.7 X10^3/uL (2.0-7.7); Basophil# 0.01 X10^3/uL; Basophil% 0.1 % (0-1); Eosinophil# 0.01 X10^3/uL; Eosinophils% 0.1 % (0-5); Hematocrit 33.3 % (37-47); Hemoglobin 11.2 g/dL (12.0-15.0); Lymphocyte # 0.79 X10^3/ul (0.83-4.51); Lymphocyte % 10.4 % (19-41); Mean Corp Hgb Conc 33.6 g/dL (32-36); Mean Corpuscular Hgb 30.1 pg (27.0-32.0); Mean Corpuscular Volume 89.5 fL (81-99); Mean Platelet Vol. 10.4 fl (6.2-12.0); Monocyte# 1.09 X10^3/uL; Monocyte% 14.4 % (0-10); NRBC Flagged by Analyzer 0 % (0-5); Neutrophil # 5.66 X10^3/uL (2.7-7.7); Neutrophil % 74.6 % (47-70); Platelet Count 138 K/mm3 (150-450); RBC Distribution Width CV 13.2 % (11.6-14.6); RBC Distribution Width SD 43.4 fl (35.1-43.9); Red Blood Count 3.72 M/mm3 (4.2-5.4); White Blood Count 7.6 K/mm3 (4.4-11.0)
[2021-07-17 08:11] LABS: Anion Gap 5 (5-15); BUN 52 mg/dL (7-18); BUN/Creat Ratio 24.2 RATIO (10-20); CPK Total, Creatine Kinase 455 U/L (26-192); Calcium,Total 8.3 mg/dL (8.5-10.1); Chloride 101 mmol/L (98-107); Creatinine, Serum 2.15 mg/dL (0.55-1.02); EST Glomerular Filtration Rate 23 mL/min (>60); Est Glom Filt Rate - Afr Amer 28 mL/min (>60); Estimated Creatinine Clearance 18.15 ml/min; Glucose 103 mg/dL (74-106); LDH 207 U/L (84-246); Potassium 4.1 mmol/L (3.5-5.1); Sodium Level 135 mmol/L (136-145); Troponin-I HS 44 pg/mL (3.0-54.0)
[2021-07-17 08:20] LABS: BNP,B-Type NATRIURETIC PEPTIDE 303.4 pg/mL (0-100)
[2021-07-17 08:27] LABS: Fibrinogen 805 mg/dl (203-444)
[2021-07-17] MEDS: Enoxaparin 30 MG/0.3 ML Syringe SC (09:20)
[2021-07-17] MEDS: dexAMETHasone 10 MG/ML Vial 6 MG IV (09:20)
[2021-07-17] MEDS: 0.9% Saline Lock 10 ML Syringe IV ×2 (09:20→21:38)
[2021-07-17] MEDS: Atenolol 100 MG Tablet PO (09:21)
[2021-07-17] MEDS: Clopidogrel Bisulfate 75 MG Tablet PO (09:21)
[2021-07-17] MEDS: hydroCHLOROthiazide 25 MG Tablet PO (09:21)
[2021-07-17] MEDS: Aspirin E.C. 81 MG Tablet PO (09:21)
[2021-07-17] MEDS: Allopurinol 300 MG Tablet PO (09:21)
--- NOTE | 2021-07-17 11:27 | CASEMGMT ---
CLARENCE MARES assessment: Call to pt's daughter, Jazz Green, for initial transition planning/care coordination assessment as pt is only alert/oriented x2. RN VISHNU introduced self and role at [facility], daughter voices understanding and consents to assessment. Pt is on 4-5L nc in no distress. Per daughter, pt is normally confused and has hx of dementia. Per daughter, pt is vaccinated and pt's sig other at home also has COVID. Daughter states no concerns with getting resources. Care providers, pharmacy, and demographics verified/updated. Presentation: Pt just dx'd w/ COVID on 4L nc, pt with weakness at home and multiple falls, no injury Admitting dx: COVID, resp failure PCP: Kiran Specialists: [facility] Preferred Pharmacy: [facility] Insurance: [employer] A/B, [employer] Prescription Benefit: Yes Living Will/HPOA: Pt has LW/HPOA and daughter is aware that they are not on file at [facility]. Pt's daughter, My Zaidi, is HPOA. LNOK: My Zaidi, daughter/HPOA; Jazz Green, daughter Living Arrangements: Pt lives with sig other, Rony, and daughter, Jazz, in 1 story home with ramp or 2-3 railed steps in and states no concerns at home. Pt's sig other assists with ADL's. Transportation: Pt is legally blind so sig other drives and states no transportation concerns. DME/HHC: Pt has a glucometer, grab bars, and daughter states they are getting pt a shower chair. Daughter states no further DME needs. Per daughter, pt has not had HHC or SNF. Daughter is unsure about plan for discharge for pt at this time. Pt is retired. Pt does not smoke cigarettes or drink ETOH. Daughter updated that CM would follow therapy and provide daughter, My/JEFFERY, with updates on plan of care. Jax BANKS updated, voices understanding. Daughter voices no further concerns/needs at this time. CM to follow for therapy notes, home oxygen need, and any further discharge planning/needs. Pt Goal: Home Plan[place] CLARENCE MARES
[2021-07-17 13:01] LABS: Bedside Glucose 255 mg/dL (70-110)
--- NOTE | 2021-07-17 14:54 | PCM.PN.HOSP ---
Subjective Subjective Feels weak still. Objective Data Objective Data Vital Signs: Vital Signs Temp Pulse Resp BP Pulse Ox 36.6 C 93 16 110/48 L 100 07/17/21 12:52 07/17/21 12:52 07/17/21 12:52 07/17/21 12:52 07/17/21 12:52 Oxygen Flow Rate (L/min) 5 Oxygen Delivery Method Nasal Cannula Weight: 62.8 kg Body Mass Index (BMI) 23.0 Intake & Output: Intake and Output for Last 24 Hours 07/15/21 07/16/21 07/17/21 23:59 23:59 23:59 Intake Total 420 / 420 Output Total 500 / 500 Balance -80 / -80 Lab / Micro Data Result Diagrams: 07/17/21 07:15 07/17/21 07:15 Labs: Laboratory Results - last 24 hr 07/17/21 02:25: WBC 7.6, RBC 4.00 L, Hgb 11.9 L, Hct 36.2 L, MCV 90.5, MCH 29.8, MCHC 32.9, RDW Std Deviation 43.3, RDW Coeff of Meagan 13.2, Plt Count 154, MPV 9.7, Immature Gran % (Auto) 0.800, Neut % (Auto) 74.7 H, Lymph % (Auto) 9.5 L, [place] % (Auto) 14.4 H, Eos % (Auto) 0.3, Baso % (Auto) 0.3, Absolute Neuts (auto) 5.7, Absolute Lymphs (auto) 0.72 L, Nucleated RBC % 0 07/17/21 02:25: Sodium 134 L, Potassium 3.8, Chloride 98, Carbon Dioxide 27.0, Anion Gap 9, BUN 47 H, Creatinine 2.13 H, Estim Creat Clear Calc 18.32, Est GFR (MDRD) Af Amer 29 L, Est GFR (MDRD) Non-Af 24 L, BUN/Creatinine Ratio 22.1 H, Glucose 143 H, Calcium 8.2 L, Magnesium 1.7, Total Bilirubin 0.60, AST 23, ALT 22, Alkaline Phosphatase 59, Troponin I High Sens 37, Total Protein 6.5, Albumin 2.5 L, Globulin 4.0, Albumin/Globulin Ratio 0.6 L 07/17/21 02:25: Lactic Acid 1.9 07/17/21 02:25: Fibrinogen 805 H, D-Dimer Quant (PE/DVT) 1.24 H* 07/17/21 02:25: Procalcitonin 0.60 H 07/17/21 03:46: Urine Color Yellow, Urine Clarity Clear, Urine pH 5.0, Ur Specific [place] 1.025, Urine Protein 100 H, Urine Glucose (UA) Normal, Urine Ketones Negative, Urine Occult Blood 50 H, Urine Nitrite Negative, Urine Bilirubin Negative, Urine Urobilinogen Normal, Ur Leukocyte Esterase 100 H, Urine RBC 0-5 SEEN, Urine WBC 10-25 SEEN, Ur Squamous Epith Cells 0-5 SEEN, Ur Transition Epith Cell 0-5 SEEN, Amorphous Sediment 2+, Urine Bacteria 3+, Urine Mucus 0 SEEN 07/17/21 07:15: Sodium 135 L, Potassium 4.1, Chloride 101, Carbon Dioxide 29.0, Anion Gap 5, BUN 52 H, Creatinine 2.15 H, Estim Creat Clear Calc 18.15, Est GFR (MDRD) Af Amer 28 L, Est GFR (MDRD) Non-Af 23 L, BUN/Creatinine Ratio 24.2 H, Glucose 103, Calcium 8.3 L, Lactate Dehydrogenase 207, Total Creatine Kinase 455 H, Troponin I High Sens 44, C-React Prot Ext Range 126.00 H 07/17/21 07:15: B-Natriuretic Peptide 303.4 H 07/17/21 07:15: WBC 7.6, RBC 3.72 L, Hgb 11.2 L, Hct 33.3 L, MCV 89.5, MCH 30.1, MCHC 33.6, RDW Std Deviation 43.4, RDW Coeff of Meagan 13.2, Plt Count 138 L, MPV 10.4, Immature Gran % (Auto) 0.400, Neut % (Auto) 74.6 H, Lymph % (Auto) 10.4 L, [place] % (Auto) 14.4 H, Eos % (Auto) 0.1, Baso % (Auto) 0.1, Absolute Neuts (auto) 5.7, Absolute Lymphs (auto) 0.79 L, Nucleated RBC % 0 07/17/21 12:51: POC Glucose 255 H Micro: Microbiology 07/17/21 02:05 Nasal Secretion SARS-CoV-2 Antigen (Rapid) - Final SARS-CoV-2 (COVID 19) Radiography Diagnostic Testing: Radiology Impression Brain CT 07/17/21 02:12 IMPRESSION: 1. No evidence of acute intracranial pathology. 2. Diffuse involutional changes and chronic ischemic small vessel white matter disease. Electronically Signed: Didier Oliver MD at 3:22 EST Tel , Service support , Chest X-Ray 07/17/21 02:47 IMPRESSION: Bilateral multilobar pneumonia. Electronically Signed: Didier Oliver MD at 3:12 EST Tel , Service support , Pelvis X-Ray 07/17/21 02:47 IMPRESSION: No acute or healing fracture or malalignment. Electronically Signed: Didier Oliver MD at 3:11 EST Tel , Service support , Physical Exam Const alert Resp normal respiratory effort, no retractions, no use of accessory muscles and clear to auscultation bilaterally Cardio regular rate, regular rhythm, S1 normal heart sound and S2 normal heart sound GI normal to inspection, nondistended, normoactive bowel sounds, soft to palpation and non-tender Extremity normal to inspection Assessment & Plan Assessment/Plan (1) Acute respiratory failure with hypoxia: (2) COVID: (3) CKD (chronic kidney disease), stage IV: PLAN: 1. acute hypoxic respiratory failure 2/2 COVID 19 pneumonia wean oxygen as tolerated 2. Acute COVID 19 pneumonia unknown time of onset unvaccinated on dexamethasone 3. CKD IV remdesivir contraindicated 4. VTE prophylaxis: LMWH Charges/Coding Procedures Hospitalists Procedures: Other Procedure - See Report (non billable rounding as pt admitted after midnight. )
[2021-07-17 16:50] LABS: Bedside Glucose 398 mg/dL (70-110)
[2021-07-17] MEDS: Pravastatin 20 MG Tablet PO (21:38)
[2021-07-17 23:00] LABS: Bedside Glucose 434 mg/dL (70-110)
[2021-07-18] VITALS (7 sets, daily range): BP systolic 107–129; BP diastolic 58–64; PULSE 80–89; RESP 15–18; TEMP 36.1–36.6; O2SAT 92–98
[2021-07-18 05:06] LABS: Absolute Lymphocyte Count 0.45 X10^3/uL (0.83-4.51); Absolute Neutrophil Count 3.6 X10^3/uL (2.0-7.7); Basophil# 0.01 X10^3/uL; Basophil% 0.2 % (0-1); Hematocrit 30.3 % (37-47); Hemoglobin 10.4 g/dL (12.0-15.0); Lymphocyte # 0.45 X10^3/ul (0.83-4.51); Mean Corp Hgb Conc 34.3 g/dL (32-36); Mean Corpuscular Volume 87.3 fL (81-99); Mean Platelet Vol. 11.1 fl (6.2-12.0); Monocyte# 0.39 X10^3/uL; Monocyte% 8.7 % (0-10); NRBC Flagged by Analyzer 0 % (0-5); Neutrophil # 3.61 X10^3/uL (2.7-7.7); Neutrophil % 80.2 % (47-70); POSITIVE DIFFERENTIAL YES; Platelet Count 144 K/mm3 (150-450); RBC Distribution Width CV 13.1 % (11.6-14.6); RBC Distribution Width SD 41.6 fl (35.1-43.9); Red Blood Count 3.47 M/mm3 (4.2-5.4); White Blood Count 4.5 K/mm3 (4.4-11.0)
[2021-07-18 05:09] LABS: Differential Indicated SCAN CRITERIA MET
[2021-07-18 05:44] LABS: Differential Comment SCANNED
[2021-07-18 05:47] LABS: ALB/GLOB Ratio 0.5 RATIO (0.9-2.4); AST(SGOT) 33 U/L (15-37); Alanine Aminotransfer ALT/SGPT 29 U/L (13-56); Alkaline Phosphatase 53 U/L (45-117); Anion Gap 11 (5-15); BUN 73 mg/dL (7-18); BUN/Creat Ratio 28.1 RATIO (10-20); Calcium,Total 8.1 mg/dL (8.5-10.1); Chloride 94 mmol/L (98-107); EST Glomerular Filtration Rate 19 mL/min (>60); Est Glom Filt Rate - Afr Amer 23 mL/min (>60); Estimated Creatinine Clearance 15.01 ml/min; Globulin 3.9 g/dL (2.2-4.2); Glucose 475 mg/dL (74-106); Potassium 4.3 mmol/L (3.5-5.1); Protein, Total 5.9 g/dL (6.4-8.2); Sodium Level 130 mmol/L (136-145)
[2021-07-18 06:45] LABS: Bedside Glucose 464 mg/dL (70-110)
[2021-07-18] MEDS: Insulin Lispro 100 UNIT/ML INSULN.PEN SC ×4 (06:58→16:50)
[2021-07-18] MEDS: dexAMETHasone 10 MG/ML Vial 6 MG IV (09:07)
[2021-07-18] MEDS: 0.9% Saline Lock 10 ML Syringe IV (09:08)
[2021-07-18] MEDS: Atenolol 100 MG Tablet PO (09:09)
[2021-07-18] MEDS: Aspirin E.C. 81 MG Tablet PO (09:09)
[2021-07-18] MEDS: Allopurinol 300 MG Tablet PO (09:09)
[2021-07-18] MEDS: Clopidogrel Bisulfate 75 MG Tablet PO (09:09)
[2021-07-18] MEDS: Enoxaparin 30 MG/0.3 ML Syringe SC (09:09)
[2021-07-18] MEDS: hydroCHLOROthiazide 25 MG Tablet PO (09:09)
[2021-07-18 12:05] LABS: Bedside Glucose 387 mg/dL (70-110)
--- NOTE | 2021-07-18 14:14 | PN.HOSP_ITS ---
Subjective Subjective Feels well. Denies shortness of breath. Objective Data Objective Data Vital Signs: Vital Signs Temp Pulse Resp BP Pulse Ox 36.6 C 83 16 117/59 L 95 07/18/21 11:55 07/18/21 11:55 07/18/21 11:55 07/18/21 11:55 07/18/21 11:55 Oxygen Flow Rate (L/min) 2 Oxygen Delivery Method Room Air Weight: 62.8 kg Body Mass Index (BMI) 23.0 Intake & Output: Intake and Output for Last 24 Hours 07/16/21 07/17/21 07/18/21 23:59 23:59 23:59 Intake Total 940 / 940 450 / 450 Output Total 500 / 500 Balance 440 / 440 450 / 450 Lab / Micro Data Result Diagrams: 07/18/21 04:50 07/18/21 04:50 Labs: Laboratory Results - last 24 hr 07/17/21 16:40: POC Glucose 398 H 07/17/21 21:33: POC Glucose 434 H 07/18/21 04:50: WBC 4.5, RBC 3.47 L, Hgb 10.4 L, Hct 30.3 L, MCV 87.3, MCH 30.0, MCHC 34.3, RDW Std Deviation 41.6, RDW Coeff of Meagan 13.1, Plt Count 144 L, MPV 11.1, Immature Gran % (Auto) 0.900, Neut % (Auto) 80.2 H, Lymph % (Auto) 10.0 L, [place] % (Auto) 8.7, Eos % (Auto) 0.0, Baso % (Auto) 0.2, Absolute Neuts (auto) 3.6, Absolute Lymphs (auto) 0.45 L, Nucleated RBC % 0, Differential Comment SCANNED 07/18/21 04:50: Sodium 130 L, Potassium 4.3, Chloride 94 L, Carbon Dioxide 25.0, Anion Gap 11, BUN 73 H, Creatinine 2.60 H, Estim Creat Clear Calc 15.01, Est GFR (MDRD) Af Amer 23 L, Est GFR (MDRD) Non-Af 19 L, BUN/Creatinine Ratio 28.1 H, Glucose 475 H*, Calcium 8.1 L, Total Bilirubin 0.40, AST 33, ALT 29, Alkaline P hosphatase 53, Total Protein 5.9 L, Albumin 2.0 L, Globulin 3.9, Albumin/Globulin Ratio 0.5 L 07/18/21 06:39: POC Glucose 464 H* 07/18/21 11:51: POC Glucose 387 H Micro: Microbiology 07/17/21 03:46 Urine, Catheterized Urine Culture - Preliminary Culture exhibits no growth. 07/17/21 02:05 Nasal Secretion SARS-CoV-2 Antigen (Rapid) - Final SARS-CoV-2 (COVID 19) Physical Exam Const Constitutional Narrative: up in chair. Appears younger than stated age. Resp normal respiratory effort, no retractions, no use of accessory muscles and clear to auscultation bilaterally Cardio regular rate, regular rhythm, S1 normal heart sound and S2 normal heart sound GI normal to inspection, nondistended, normoactive bowel sounds, soft to palpation, non-tender and non-distended Extremity normal to inspection Assessment & Plan Assessment/Plan (1) Acute respiratory failure with hypoxia: (2) COVID: (3) CKD (chronic kidney disease), stage IV: PLAN: 1. acute hypoxic respiratory failure 2/2 COVID 19 pneumonia wean oxygen as tolerated 2. Acute COVID 19 pneumonia unknown time of onset pt report that she unvaccinated, but CM noted that she was on dexamethasone 3. CKD IV remdesivir contraindicated 4. VTE prophylaxis: LMWH 5. Debility: additional therapy recommended. Home health v SNF. Awaiting on feedback from family and PT today. Charges/Coding Visit Charges Inpatient E&M: 96855 Subs Hosp L2
[2021-07-18] MEDS: amLODIPine 5 MG Tablet PO (15:08)
[2021-07-18] MEDS: Lisinopril 20 MG Tablet PO (15:08)
--- NOTE | 2021-07-18 15:57 | CASEMGMT ---
RN spoke with patient's daughter, My Zaidi. Patient's daughter that normally lives with her is out of town. Patient's significant other is there, but he too is sick. They asked about their options. JOCELYN told My that [facility] in [place] is the only option due to patient being COVID positive. They gave permission to send a referral. JOCELYN faxed referral to [facility] and also left a voice mail for Shantel. Valencia Bailon SUPERVISOR ELECTRIC PEPE
--- NOTE | 2021-07-18 16:59 | NURSING ---
patient talking to daughter now
[2021-07-18 17:00] LABS: Bedside Glucose 331 mg/dL (70-110)
--- NOTE | 2021-07-18 17:14 | CASEMGMT ---
SW received a message from Shantel at [facility] and they do not have any beds available. Valencia Bailon PORT PATROL OFFICER PEPE
[2021-07-18] MEDS: Pravastatin 20 MG Tablet PO (20:33)
[2021-07-18 20:46] LABS: Bedside Glucose 376 mg/dL (70-110)
[2021-07-19] VITALS (8 sets, daily range): BP systolic 119–148; BP diastolic 62–72; PULSE 66–92; RESP 15–18; TEMP 36.3–37.7; O2SAT 92–96
[2021-07-19] MEDS: Insulin Lispro 100 UNIT/ML INSULN.PEN SC ×3 (06:36→16:34)
[2021-07-19 07:00] LABS: Bedside Glucose 209 mg/dL (70-110)
[2021-07-19] MEDS: Allopurinol 300 MG Tablet PO (08:37)
[2021-07-19] MEDS: dexAMETHasone 10 MG/ML Vial 6 MG IV (08:37)
[2021-07-19] MEDS: 0.9% Saline Lock 10 ML Syringe IV (08:38)
[2021-07-19] MEDS: Lisinopril 20 MG Tablet PO (08:38)
[2021-07-19] MEDS: hydroCHLOROthiazide 25 MG Tablet PO (08:38)
[2021-07-19] MEDS: amLODIPine 5 MG Tablet PO (08:38)
[2021-07-19] MEDS: Clopidogrel Bisulfate 75 MG Tablet PO (08:38)
[2021-07-19] MEDS: Enoxaparin 30 MG/0.3 ML Syringe SC (08:38)
[2021-07-19] MEDS: Atenolol 100 MG Tablet PO (08:38)
[2021-07-19] MEDS: Aspirin E.C. 81 MG Tablet PO (08:38)
[2021-07-19 11:45] LABS: Bedside Glucose 175 mg/dL (70-110)
--- NOTE | 2021-07-19 12:59 | NURSING ---
This RN taking over care of pt at this time. Report received from Vinny LIMA
--- NOTE | 2021-07-19 13:30 | CASEMGMT ---
JOCELYN called Shantel at [facility] and left her a voice mail inquiring if patient could be put on a waiting list for the next COVID bed available. JOCELYN has not heard back
--- NOTE | 2021-07-19 14:08 | PCM.PN.HOSP ---
Subjective Subjective Feels well. Denies shortness of breath. Objective Data Objective Data Vital Signs: Vital Signs Temp Pulse Resp BP Pulse Ox 36.8 C 81 16 128/62 H 95 07/19/21 10:40 07/19/21 10:40 07/19/21 10:40 07/19/21 10:40 07/19/21 12:20 Oxygen Flow Rate (L/min) 2 Oxygen Delivery Method Nasal Cannula Weight: 62.8 kg Body Mass Index (BMI) 23.0 Intake & Output: Intake and Output for Last 24 Hours 07/17/21 07/18/21 07/19/21 23:59 23:59 23:59 Intake Total 940 / 940 970 / 970 170 / 170 Output Total 500 / 500 Balance 440 / 440 970 / 970 170 / 170 Lab / Micro Data Result Diagrams: 07/18/21 04:50 07/18/21 04:50 Labs: Laboratory Results - last 24 hr 07/18/21 16:49: POC Glucose 331 H 07/18/21 20:31: POC Glucose 376 H 07/19/21 06:34: POC Glucose 209 H 07/19/21 11:21: POC Glucose 175 H Micro: Microbiology 07/17/21 03:46 Urine, Catheterized Urine Culture - Final Culture exhibits no growth. 07/17/21 02:05 Nasal Secretion SARS-CoV-2 Antigen (Rapid) - Final SARS-CoV-2 (COVID 19) Physical Exam Const alert and no apparent distress Resp normal respiratory effort, no retractions, no use of accessory muscles and clear to auscultation bilaterally Cardio regular rate, regular rhythm, S1 normal heart sound and S2 normal heart sound GI normal to inspection, nondistended, normoactive bowel sounds and soft to palpation Assessment & Plan Assessment/Plan (1) Acute respiratory failure with hypoxia: (2) COVID: (3) CKD (chronic kidney disease), stage IV: PLAN: 1. acute hypoxic respiratory failure 2/2 COVID 19 pneumonia wean oxygen as tolerated 2. Acute COVID 19 pneumonia unknown time of onset pt report that she unvaccinated, but CM noted that she was on dexamethasone 3. CKD IV remdesivir contraindicated 4. VTE prophylaxis: LMWH 5. Debility: additional therapy recommended. plan for SNF. [facility], which is the only local facility accepting COVID 19 patients has no current beds. 6. DM2: uncontrolled monitor on glargine. Charges/Coding Visit Charges Inpatient E&M: 48732 Subs Hosp L2
--- NOTE | 2021-07-19 14:33 | CASEMGMT ---
JOCELYN called patient's daughter, My and let her know [facility] does not have any beds available. JOCELYN explained SW called [facility] to see if patient could be put on a waiting list for the next COVID bed. JOCELYN told her SW has not heard back yet. JOCELYN told My that if [facility] calls and has a bed for patient she could go. Someone from [facility] would let her know before anything happens. Awaiting return call from [facility] to see if they are able to put patient on a wait list for the next COVID bed. Valencia CANTU
--- NOTE | 2021-07-19 16:27 | CASEMGMT ---
Received response from Shantel at [facility] and they will have a bed for patient tomorrow. JOCELYN notified patient's daughter, My and physician. JOCELYN will complete a convalescent on HENS. Green sheet will be on chart. Plan: d/c to [facility] under skilled level of care on a convalescent stay. Valencia Bailon OLERICULTURIST PEPE
[2021-07-19 16:45] LABS: Bedside Glucose 294 mg/dL (70-110)
--- NOTE | 2021-07-19 17:01 | CASEMGMT ---
Patient's daughter My called SW and said she will be bringing clothes to patient tomorrow. She will drop them off by 9a. My asked if SW could talk with patient and let her know that she is going to [facility]. SW met with patient. Introduced self and role at [facility]. SW explained to patient that it is being recommended she go to a senior care facility short term to get stronger. SW explained that because she has COVID she has to go to [facility] in [place] as this is the only facility taking patients with COVID. SW assured her it will be short term. SW let her know her daughter My will drop off clothes for her tomorrow as she will likely go to [facility] tomorrow. Patient was in agreement. Plan: d/c to [facility] [place] under skilled level of care on a convalescent stay. Valencia CANTU
[2021-07-19] MEDS: Pravastatin 20 MG Tablet PO (20:13)
[2021-07-19 20:25] LABS: Bedside Glucose 389 mg/dL (70-110)
[2021-07-20 02:17] VITALS: BP 115/56; PULSE 83; RESP 18; TEMP 36.6; O2SAT 94
[2021-07-20] MEDS: Insulin Lispro 100 UNIT/ML INSULN.PEN SC ×2 (06:15→10:32)
[2021-07-20 06:31] LABS: Bedside Glucose 335 mg/dL (70-110)
[2021-07-20 10:25] VITALS: BP 130/64; PULSE 83; RESP 18; TEMP 36.6; O2SAT 93
[2021-07-20] MEDS: Clopidogrel Bisulfate 75 MG Tablet PO (10:26)
[2021-07-20] MEDS: Aspirin E.C. 81 MG Tablet PO (10:27)
[2021-07-20] MEDS: Enoxaparin 30 MG/0.3 ML Syringe SC (10:27)
[2021-07-20] MEDS: Lisinopril 20 MG Tablet PO (10:27)
[2021-07-20] MEDS: 0.9% Saline Lock 10 ML Syringe IV (10:27)
[2021-07-20] MEDS: dexAMETHasone 10 MG/ML Vial 6 MG IV (10:27)
[2021-07-20] MEDS: hydroCHLOROthiazide 25 MG Tablet PO (10:27)
[2021-07-20] MEDS: Allopurinol 300 MG Tablet PO (10:27)
[2021-07-20] MEDS: Atenolol 100 MG Tablet PO (10:27)
[2021-07-20] MEDS: amLODIPine 5 MG Tablet PO (10:27)
[2021-07-20 10:41] LABS: Bedside Glucose 321 mg/dL (70-110)
--- NOTE | 2021-07-20 11:45 | PCM.TXEXTCAR ---
Diet 07/18/21 09:52 Diet: Consistent Carb - Calorie Controlled Type of Dietary Supplement:: Glucerna Shake Is pt able to select menu?: No Diet Comments: 120mL w/ breakfast and dinner How many daily calories?: 1600 calorie Routine Orders/Code Status O2 Liters per Minute: 3 O2 Frequency: Continuous Keep PO Greater than or Equal to (%): 90 Routine Lab Work: CBC and BMP Code Status: Full Code Problem/Diagnosis (1) Acute respiratory failure with hypoxia: Status: Acute (2) COVID: Status: Acute (3) CKD (chronic kidney disease), stage IV: Status: Chronic Allergies/Procedures Done in Hospital Allergies No Known Allergies Allergy (Verified 07/17/21 02:03) Type of Care/Length of Stay Estimated LOS: Convalescent Care Less Than 30 days Type of Care Needed: Skilled Rehab Potential: Fair Prognosis: Good Additional Orders/Day of Discharge Day of Discharge: 07/20/21 Dietary and Speech Recommendations Dietitian Recommendations/Changes: will change to 1600 calorie/consistent CHO, 120mL glucerna ONS w/ breakfast and dinner for additional calories/protein if consumed. Discharge Plan Admission Admit Date/Time: 07/17/21 04:24 Primary Reason for Your Visit: COVID 19. Debility Attending Provider: Nathaniel Pederson Primary Care Provider: Ervin Beck Discharge Orders/Prescriptions Prescriptions: New Lantus Solostar U-100 Insulin 100 unit/mL (3 mL) Insulin Pen 50 units subcut BID Qty: 0 RF: 0 dexamethasone 6 mg tablet 6 mg PO DAILY Qty: 6 RF: 0 Continued atenolol 100 MG tablet 100 mg PO DAILY RF: 0 enalapril maleate 20 MG tablet 20 mg PO DAILY RF: 0 allopurinol 300 MG tablet 300 mg PO DAILY RF: 0 pravastatin 20 MG tablet 20 mg PO DAILY RF: 0 hydrochlorothiazide 25 MG tablet 25 mg PO DAILY RF: 0 aspirin 81 MG tablet,delayed release (DR/EC) 81 mg PO DAILY RF: 0 clopidogrel 75 MG tablet 75 mg PO DAILY RF: 0 amlodipine 5 mg Tablet 5 mg PO DAILY Qty: 30 RF: 0 Held dulaglutide 1.5 MG/0.5 ML pen injector 1.5 mg SQ SAN[place]ORD RF: 0 Hold Instructions: Resume on 07/27/21. Lantus U-100 Insulin 100 unit/mL solution 34 unit SUBCUT BREAKFAST RF: 0 Hold Instructions: Resume on 07/27/21. Lantus U-100 Insulin 100 unit/mL solution 30 unit SUBCUT QHS RF: 0 Hold Instructions: Resume on 07/27/21. Referrals / Follow Up: Ervin Beck DO [Primary Care Provider] - Within 2 Weeks Disposition Disposition (needs filled in before D/C Order can be placed): Residential Facility
--- NOTE | 2021-07-20 11:53 | PCM.DC.SUM ---
Providers Date of Admission: 07/17/21 Primary Care Physician: Dr. Ervin Beck, DO Reason For Visit: COVID 19, RESPIRATORY FAILURE Diagnosis Discharge Diagnosis (1) Acute respiratory failure with hypoxia: Status: Acute Code(s): J96.01 - Acute respiratory failure with hypoxia (2) COVID: Status: Acute Code(s): U07.1 - COVID-19 (3) CKD (chronic kidney disease), stage IV: Status: Chronic Code(s): N18.4 - Chronic kidney disease, stage 4 (severe) Medications at Discharge Home Medications allopurinol 300 mg PO DAILY 06/15/19 aspirin 81 mg PO DAILY 06/15/19 atenolol 100 mg PO DAILY 06/15/19 dulaglutide 1.5 mg SQ [place] 06/15/19 enalapril maleate 20 mg PO DAILY 06/15/19 hydrochlorothiazide 25 mg PO DAILY 06/15/19 pravastatin 20 mg PO DAILY 06/15/19 clopidogrel 75 mg PO DAILY 12/05/20 amlodipine 5 mg PO DAILY #30 tab 12/08/20 Lantus U-100 Insulin 30 unit SUBCUT QHS 07/17/21 Lantus U-100 Insulin 34 unit SUBCUT BREAKFAST 07/17/21 dexamethasone 6 mg PO DAILY #6 tab 07/20/21 insulin glargine [Lantus Solostar U-100 Insulin] 50 units SUBCUT BID #0 ml 07/20/21 Hospital Course Operations None Procedures None Summary of Care Provided Minutes Spent on Discharge: 32 Hospital Course: 1. acute hypoxic respiratory failure 2/2 COVID 19 pneumonia wean oxygen as tolerated continue 2l/m 2. Acute COVID 19 pneumonia unknown time of onset pt report that she unvaccinated, but CM noted that she was on dexamethasone, continue 10 days 3. CKD IV remdesivir contraindicated 4. Debility: additional therapy recommended. plan for SNF. [facility] today as bed became available. 5. DM2: uncontrolled exacerbated by steroids continue glargine 50 BID while on dexamethasone, then revert to previous dosing upon discharge. Physical Exam Const alert and no apparent distress Resp normal respiratory effort, no retractions, no use of accessory muscles and clear to auscultation bilaterally Cardio regular rate, regular rhythm, S1 normal heart sound and S2 normal heart sound GI normal to inspection, nondistended, normoactive bowel sounds, soft to palpation, non-tender and non-distended Extremity normal to inspection Weight / BMI Weight Weight: 62.8 kg Body Mass Index (BMI) 23.0 ABG / Lab / Microbiology Data Result Diagrams: 07/18/21 04:50 07/18/21 04:50 Laboratory: Laboratory Results - last 24 hr 07/19/21 16:33: POC Glucose 294 H 07/19/21 20:08: POC Glucose 389 H 07/20/21 06:13: POC Glucose 335 H 07/20/21 10:31: POC Glucose 321 H Microbiology: Microbiology 07/17/21 03:46 Urine, Catheterized Urine Culture - Final Culture exhibits no growth. 07/17/21 02:05 Nasal Secretion SARS-CoV-2 Antigen (Rapid) - Final SARS-CoV-2 (COVID 19) Meaningful Use Info Meaningful Use Diagnoses (Choose all that apply): None applicable Discharge Plan Admission Admit Date/Time: 07/17/21 04:24 Primary Reason for Your Visit: COVID 19. Debility Attending Provider: Nathaniel Pederson Primary Care Provider: Ervin Beck Discharge Orders/Prescriptions Prescriptions: New Lantus Solostar U-100 Insulin 100 unit/mL (3 mL) Insulin Pen 50 units subcut BID Qty: 0 RF: 0 dexamethasone 6 mg tablet 6 mg PO DAILY Qty: 6 RF: 0 Continued atenolol 100 MG tablet 100 mg PO DAILY RF: 0 enalapril maleate 20 MG tablet 20 mg PO DAILY RF: 0 allopurinol 300 MG tablet 300 mg PO DAILY RF: 0 pravastatin 20 MG tablet 20 mg PO DAILY RF: 0 hydrochlorothiazide 25 MG tablet 25 mg PO DAILY RF: 0 aspirin 81 MG tablet,delayed release (DR/EC) 81 mg PO DAILY RF: 0 clopidogrel 75 MG tablet 75 mg PO DAILY RF: 0 amlodipine 5 mg Tablet 5 mg PO DAILY Qty: 30 RF: 0 Held dulaglutide 1.5 MG/0.5 ML pen injector 1.5 mg SQ [place] RF: 0 Hold Instructions: Resume on 07/27/21. Lantus U-100 Insulin 100 unit/mL solution 34 unit SUBCUT BREAKFAST RF: 0 Hold Instructions: Resume on 07/27/21. Lantus U-100 Insulin 100 unit/mL solution 30 unit SUBCUT QHS RF: 0 Hold Instructions: Resume on 07/27/21. Referrals / Follow Up: Ervin Beck DO [Primary Care Provider] - Within 2 Weeks Disposition Disposition (needs filled in before D/C Order can be placed): [facility]irement Facility Charges/Coding Visit Charges Inpatient E&M: 82378 Disch Hosp
--- NOTE | 2021-07-20 12:27 | CM.ED ---
SW Note SW spoke to plumbing instructor and the plumbing instructor voiced that the plan is discharge for patient today. SW noted that patient is being discharged. JOCELYN completed the 2100 form and submitted it to [facility] Department of Aging. Halima ACEVES
--- NOTE | 2021-07-20 13:24 | NURSING ---
report called to asad fletcher at [facility], no further questions voiced
== END 2021-07-20 14:33 | disposition skilled nursing facility (03) | DRG 177 ==
LOC: ED 03:56 → PCU 04:31
PROVIDERS: Admitting Provider Family Medicine; Emergency Provider Emergency Medicine; PCP Student in an Organized Health Care Education/Training Program
DX: U07.1 COVID-19 (principal); J96.01 Acute respiratory failure with hypoxia; I67.83 Posterior reversible encephalopathy syndrome; J12.82 Pneumonia due to coronavirus disease 2019; E11.00 Type 2 diabetes mellitus with hyperosmolarity without nonketotic hyperglycemic-hyperosmolar coma (NKHHC); N18.4 Chronic kidney disease, stage 4 (severe); I12.9 Hypertensive chronic kidney disease with stage 1 through stage 4 chronic kidney disease, or unspecified chronic kidney disease; E11.22 Type 2 diabetes mellitus with diabetic chronic kidney disease; R29.6 Repeated falls; T38.0X5A Adverse effect of glucocorticoids and synthetic analogues, initial encounter; Z79.899 Other long term (current) drug therapy; Z79.02 Long term (current) use of antithrombotics/antiplatelets; Z79.4 Long term (current) use of insulin; Z79.82 Long term (current) use of aspirin; Z28.3 Underimmunization status
CPT/HCPCS: 36415; 70450; 71045; 72170; 80048; 80053; 81001; 82550; 82962; 83605; 83615; 83735; 83880; 84145; 84484; 85025; 85379; 85384; 86140; 87086; 87426; 97110; 97116; 97162; 97530; 99285; A4216